=== PATIENT | female | born 1950 | race Caucasian/White ===

== ENCOUNTER 2016-03-09 19:06 | Emergency (ER) | payer OTHER ==
--- NOTE | 2016-03-09 19:53 | ER Document Report ---
ED Medical Screen (RME) - General Chief Complaint: Skin Problem Stated Complaint: SKIN ISSUE Mode of Arrival: Ambulatory Information source: Patient Notes: 65 y/o F presents to ED c/o bruise-type lesion to left forearm. States first noted lesion yesterday evening. Denies obvious injury, pain, swelling. I have greeted and performed a rapid initial assessment of this patient. A comprehensive ED assessment and evaluation of the patient, analysis of test results and completion of the medical decision making process will be conducted by additional ED providers. TRAVEL OUTSIDE OF THE [place] IN LAST 30 DAYS: No - Related Data Allergies/Adverse Reactions: rosuvastatin [From Crestor] Adverse Reaction (Verified 03/09/16 19:51) Past Medical History Endocrine Medical History: Reports: Hx Diabetes Mellitus Type 2 Renal/ Medical History: Denies: Hx Peritoneal Dialysis GI Medical History: Reports: Hx Gastroesophageal Reflux Disease, Hx Hepatitis - C Infectious Medical History: Reports: Hx Hepatitis - C - Immunizations Hx Diphtheria, Pertussis, Tetanus Vaccination: Yes Physical Exam - General General appearance: Appears well, Alert In distress: None
--- NOTE | 2016-03-09 21:54 | ER Document Report ---
ED Skin Rash/Insect Bite/Abscs - General Chief Complaint: Skin Problem Stated Complaint: SKIN ISSUE Mode of Arrival: Ambulatory Notes: Patient is a 65-year-old female who comes in complaining of a lesion on her left forearm. Patient states that it started last night and she doesn't remember hitting it on anything. Patient is concerned that she might have a blood clot. Patient points to an area of dark ecchymosis on her proximal left forearm. Denies pain, itching, blood thinners, or any other complaints. No other areas that look like this. No recent instrumentation. No fever. TRAVEL OUTSIDE OF THE [place] IN LAST 30 DAYS: No - HPI Patient complains to provider of: Skin rash/lesion Onset: Other Onset/Duration: Gradual Quality of pain: No pain Skin Character: Other Skin Temperature: Warm Quality of rash: No: Itchy, Painful, Burning Identify cause: No Exacerbated by: Denies Relieved by: Denies - Related Data Allergies/Adverse Reactions: rosuvastatin [From Crestor] Adverse Reaction (Verified 03/09/16 19:51) Past Medical History - General Information source: Patient - Social History Smoking Status: Unknown if Ever Smoked Family History: Reviewed & Not Pertinent Patient has suicidal ideation: No Patient has homicidal ideation: No - Medical History Medical History: Negative Endocrine Medical History: Reports: Hx Diabetes Mellitus Type 2 Renal/ Medical History: Denies: Hx Peritoneal Dialysis GI Medical History: Reports: Hx Gastroesophageal Reflux Disease, Hx Hepatitis - C Infectious Medical History: Reports: Hx Hepatitis - C - Immunizations Hx Diphtheria, Pertussis, Tetanus Vaccination: Yes Review of Systems - Review of Systems Constitutional: No symptoms reported EENT: No symptoms reported Cardiovascular: No symptoms reported Respiratory: No symptoms reported Gastrointestinal: No symptoms reported Genitourinary: No symptoms reported Female Genitourinary: No symptoms reported Musculoskeletal: No symptoms reported Skin: See HPI Hematologic/Lymphatic: No symptoms reported Neurological/Psychological: No symptoms reported Physical Exam - Vital signs Vitals: Temp Pulse Resp BP Pulse Ox 97.9 F 80 16 137/77 H 93 03/09/16 19:29 03/09/16 19:29 03/09/16 19:29 03/09/16 19:29 03/09/16 19:29 Interpretation: Normal - General General appearance: Appears well, Alert - HEENT Head: Normocephalic, Atraumatic Eyes: Normal Pupils: PERRL - Respiratory Respiratory status: No respiratory distress Chest status: Nontender Breath sounds: Normal Chest palpation: Normal - Cardiovascular Rhythm: Regular Heart sounds: Normal auscultation Murmur: No - Abdominal Inspection: Normal Distension: No distension Bowel sounds: Normal Tenderness: Nontender Organomegaly: No organomegaly - Back Back: Normal, Nontender - Extremities General upper extremity: Nontender, Normal color, Normal ROM, Normal temperature General lower extremity: Normal inspection, Nontender, Normal color, Normal ROM , Normal temperature, Normal weight bearing. No: Mónica's sign Forearm: Ecchymosis - Area of dark ecchymosis to left proximal forearm, approximately 0.5 cm wide by 3 cm long - Neurological Neuro grossly intact: Yes Cognition: Normal Orientation: AAOx4 Reena Coma Scale Eye Opening: Spontaneous [place] Coma Scale Verbal: Oriented [place] Coma Scale Motor: Obeys Commands Reena Coma Scale Total: 15 Speech: Normal Motor strength normal: LUE, RUE, LLE, RLE Sensory: Normal - Psychological Associated symptoms: Normal affect, Normal mood - Skin Skin Temperature: Warm Skin Moisture: Dry Skin Color: Normal Course - Re-evaluation Re-evalutation: 03/09/16 22:14 Patient is not anemic. Platelets within normal limits. No other symptoms. Symptoms are consistent with vasculitis, more likely patient had her arm on something without realizing. Patient will be discharged home and is to follow- up with her doctor. Stable for discharge. Grateful for care. - Vital Signs Vital signs: Temp Pulse Resp BP Pulse Ox 97.6 F 71 18 127/76 H 92 03/09/16 21:59 03/09/16 21:59 03/09/16 21:59 03/09/16 21:59 03/09/16 21:59 - Laboratory Result Diagrams: 03/09/16 21:40 03/09/16 21:40 Laboratory results interpreted by me: 03/09/16 21:40 WBC 11.1 H Hgb 15.6 H Hct 48.5 H Discharge - Discharge Clinical Impression: Ecchymosis of forearm Condition: Stable Disposition: HOME, SELF-CARE Instructions: Contusion ([facility]) Additional Instructions: Please call for results. Please follow-up with your doctor regarding your symptoms.
[2016-03-09 21:57] LABS: ABSOLUTE BASOPHILS # (AUTO) 0.1 10^3/uL (0.0-0.2); ABSOLUTE EOSINOPHILS # (AUTO) 0.3 10^3/uL (0.0-0.6); ABSOLUTE LYMPHOCYTES (AUTO) 3.5 10^3/uL (0.5-4.7); ABSOLUTE MONOCYTES (AUTO) 1.4 10^3/uL (0.1-1.4); ABSOLUTE NEUT (AUTO) 5.6 10^3/uL (1.7-8.2); BASOPHILS % (AUTO) 1.2 % (0-2); EOSINOPHILS % (AUTO) 2.7 % (0-6); HEMATOCRIT 48.5 % (36.0-47.0); HEMOGLOBIN 15.6 g/dL (12.0-15.5); HGB HCT DIFFERENCE -1.7; MEAN CORPUSCULAR HEMOGLOBIN 29.7 pg (27.0-33.4); MEAN CORPUSCULAR HGB CONC 32.2 g/dL (32.0-36.0); MEAN CORPUSCULAR VOLUME 92 fl (80-97); RED BLOOD COUNT 5.27 10^6/uL (3.72-5.28); RED CELL DISTRIBUTION WIDTH 13.7 % (11.5-14.0); SEGMENTED NEUTROPHILS % (AUTO) 51.1 % (42-78); WHITE BLOOD COUNT 11.1 10^3/uL (4.0-10.5)
[2016-03-09 22:10] VITALS: BP 127/76
[2016-03-09 22:16] LABS: ALANINE AMINOTRANSFERASE 33 U/L (9-52); ALBUMIN 4.8 g/dL (3.5-5.0); ALKALINE PHOSPHATASE 77 U/L (38-126); ANION GAP 16 (5-19); ASPARTATE AMINO TRANSFERASE 26 U/L (14-36); BILIRUBIN,TOTAL 0.5 mg/dL (0.2-1.3); BLOOD UREA NITROGEN 26 mg/dL (7-20); CALCIUM 10.5 mg/dL (8.4-10.2); CARBON DIOXIDE 31 mmol/L (22-30); CHLORIDE 97 mmol/L (98-107); CREATININE RESULT 0.86 mg/dL (0.52-1.25); GLUCOSE 100 mg/dL (75-110); POTASSIUM 3.5 mmol/L (3.6-5.0); SODIUM 143.5 mmol/L (137-145); TOTAL PROTEIN 8.3 g/dL (6.3-8.2)
== END 2016-03-09 22:00 | disposition home or self-care (01) ==
LOC: ER 19:06
DX: R58 Hemorrhage, not elsewhere classified (principal); E11.9 Type 2 diabetes mellitus without complications
CPT/HCPCS: 36415; 80053; 85025; 99283

== ENCOUNTER → 2016-05-20 | Outpatient (CLI) | payer OTHER | LOC: OD 15:11 | DX: B19.20 Unspecified viral hepatitis C without hepatic coma (principal) | CPT/HCPCS: 36415; 83036; 87522 ==

== ENCOUNTER 2016-09-04 12:44 | Emergency (ER) | payer OTHER ==
--- NOTE | 2016-09-04 13:05 | ER Document Report ---
ED Medical Screen (RME) - General Chief Complaint: Lower Abdominal Pain Stated Complaint: HIP PAIN Time Seen by Provider: 09/04/16 13:02 Notes: Patient states for several months she has had right hip and low back pain. It is progressively getting worse. It does radiate into her right pelvis and down her right thigh. She also states she has had some nausea and some diarrhea. No problems with urination. She states she does have a history of hepatitis C. No falls or trauma. TRAVEL OUTSIDE OF THE [place] IN LAST 30 DAYS: No - Related Data Allergies/Adverse Reactions: rosuvastatin [From Crestor] Adverse Reaction (Verified 09/04/16 12:57) Past Medical History - Past Medical History Cardiac Medical History: Reports: Hx Hypertension Endocrine Medical History: Reports: Hx Diabetes Mellitus Type 2 Renal/ Medical History: Denies: Hx Peritoneal Dialysis GI Medical History: Reports: Hx Gastroesophageal Reflux Disease, Hx Hepatitis - C Psychiatric Medical History: Reports: Hx Depression Infectious Medical History: Reports: Hx Hepatitis - C Past Surgical History: Reports: Hx Section - x1, Hx Gynecologic Surgery - Lump removal from L breast, Hx Hysterectomy, Hx Tonsillectomy - Immunizations Hx Diphtheria, Pertussis, Tetanus Vaccination: Yes Physical Exam - Vital signs Vitals: Temp Pulse Resp BP Pulse Ox 98 F 70 18 176/91 H 94 09/04/16 12:55 09/04/16 12:55 09/04/16 12:55 09/04/16 12:55 09/04/16 12:55 Course - Vital Signs Vital signs: Temp Pulse Resp BP Pulse Ox 98 F 70 18 176/91 H 94 09/04/16 12:55 09/04/16 12:55 09/04/16 12:55 09/04/16 12:55 09/04/16 12:55
[2016-09-04 13:29] LABS: APPEARANCE,URINE SLIGHTLY-CLOUDY; BILIRUBIN,URINE NEGATIVE (NEGATIVE); GLUCOSE, URINE NEGATIVE (NEGATIVE); KETONES,URINE NEGATIVE (NEGATIVE); LEUKOCYTE ESTERASE,URINE NEGATIVE (NEGATIVE); NITRITE,URINE NEGATIVE (NEGATIVE); PROTEIN,URINE 30 mg/dL (NEGATIVE); URINE SPECIFIC GRAVITY 1.014
[2016-09-04 13:35] LABS: ABSOLUTE BASOPHILS # (AUTO) 0.1 10^3/uL (0.0-0.2); ABSOLUTE EOSINOPHILS # (AUTO) 0.1 10^3/uL (0.0-0.6); ABSOLUTE LYMPHOCYTES (AUTO) 2.7 10^3/uL (0.5-4.7); ABSOLUTE MONOCYTES (AUTO) 1.2 10^3/uL (0.1-1.4); ABSOLUTE NEUT (AUTO) 6.7 10^3/uL (1.7-8.2); BASOPHILS % (AUTO) 1.3 % (0-2); EOSINOPHILS % (AUTO) 1.2 % (0-6); HEMATOCRIT 46.3 % (36.0-47.0); HEMOGLOBIN 15.8 g/dL (12.0-15.5); HGB HCT DIFFERENCE 1.1; LYMPHOCYTES % (AUTO) 24.6 % (13-45); MEAN CORPUSCULAR HEMOGLOBIN 31.7 pg (27.0-33.4); MEAN CORPUSCULAR HGB CONC 34.2 g/dL (32.0-36.0); MEAN CORPUSCULAR VOLUME 93 fl (80-97); RED BLOOD COUNT 4.99 10^6/uL (3.72-5.28); RED CELL DISTRIBUTION WIDTH 13.2 % (11.5-14.0); SEGMENTED NEUTROPHILS % (AUTO) 61.9 % (42-78); WHITE BLOOD COUNT 10.8 10^3/uL (4.0-10.5)
[2016-09-04 13:44] LABS: ALANINE AMINOTRANSFERASE 32 U/L (9-52); ALBUMIN 4.4 g/dL (3.5-5.0); ALKALINE PHOSPHATASE 76 U/L (38-126); ANION GAP 12 (5-19); ASPARTATE AMINO TRANSFERASE 21 U/L (14-36); BILIRUBIN,DIRECT 0.3 mg/dL (0.0-0.4); BILIRUBIN,TOTAL 0.6 mg/dL (0.2-1.3); BLOOD UREA NITROGEN 9 mg/dL (7-20); CALCIUM 9.7 mg/dL (8.4-10.2); CARBON DIOXIDE 27 mmol/L (22-30); CHLORIDE 104 mmol/L (98-107); CREATININE RESULT 0.62 mg/dL (0.52-1.25); GLUCOSE 83 mg/dL (75-110); POTASSIUM 4.2 mmol/L (3.6-5.0); SODIUM 143.4 mmol/L (137-145); TOTAL PROTEIN 7.3 g/dL (6.3-8.2)
--- NOTE | 2016-09-04 13:51 | ER Document Report ---
ED General - General Chief Complaint: Lower Abdominal Pain Stated Complaint: HIP PAIN Time Seen by Provider: 09/04/16 13:02 Mode of Arrival: Ambulatory Information source: Patient Notes: 66-year-old female presents with complaints of right lower quadrant pain intermittently over the past few years. Patient states she feels like there is a pressure sensation that is just worsened. Patient denies having been seen for this, denies any fevers or chills nausea vomiting or diarrhea. Patient does note that she has had a total hysterectomy but was told she still has ovaries coincidently TRAVEL OUTSIDE OF THE [place] IN LAST 30 DAYS: No - HPI Onset: Other Onset/Duration: Intermittent Quality of pain: Achy Severity: Mild Pain Level: 1 Associated symptoms: Other Exacerbated by: Denies Relieved by: Denies Similar symptoms previously: Yes Recently seen / treated by doctor: No - Related Data Allergies/Adverse Reactions: rosuvastatin [From Crestor] Adverse Reaction (Verified 09/04/16 12:57) Past Medical History - Social History Smoking Status: Never Smoker Cigarette use (# per day): No Chew tobacco use (# tins/day): No Smoking Education Provided: No Family History: Reviewed & Not Pertinent Patient has suicidal ideation: No Patient has homicidal ideation: No - Past Medical History Cardiac Medical History: Reports: Hx Hypertension Endocrine Medical History: Reports: Hx Diabetes Mellitus Type 2 Renal/ Medical History: Denies: Hx Peritoneal Dialysis GI Medical History: Reports: Hx Gastroesophageal Reflux Disease, Hx Hepatitis - C Psychiatric Medical History: Reports: Hx Depression Infectious Medical History: Reports: Hx Hepatitis - C Past Surgical History: Reports: Hx Section - x1, Hx Gynecologic Surgery - Lump removal from L breast, Hx Hysterectomy, Hx Tonsillectomy - Immunizations Hx Diphtheria, Pertussis, Tetanus Vaccination: Yes Review of Systems - Review of Systems Notes: REVIEW OF SYSTEMS: CONSTITUTIONAL : Denies fever, chills, or sweats. Denies recent illness. EENT: Denies eye, ear, throat, or mouth pain or symptoms. Denies nasal or sinus congestion or discharge. Denies throat, tongue, or mouth swelling or difficulty swallowing. CARDIOVASCULAR: Denies chest pain. Denies palpitations or racing or irregular heart beat. Denies ankle edema. RESPIRATORY: Denies cough, cold, or chest congestion. Denies shortness of breath, difficulty breathing, or wheezing. GASTROINTESTINAL: Tenderness in the right groin GENITOURINARY: Denies difficulty urinating, painful urination, burning, frequency, blood in urine, or discharge. FEMALE GENITOURINARY: Denies vaginal bleeding, heavy or abnormal periods, irregular periods. Denies vaginal discharge or odor. MUSCULOSKELETAL: Denies back or neck pain or stiffness. Denies joint pain or swelling. SKIN: Denies rash, lesions or sores. HEMATOLOGIC : Denies easy bruising or bleeding. LYMPHATIC: Denies swollen, enlarged glands. NEUROLOGICAL: Denies confusion or altered mental status. Denies passing out or loss of consciousness. Denies dizziness or lightheadedness. Denies headache. Denies weakness or paralysis or loss of use of either side. Denies problems with gait or speech. Denies sensory loss, numbness, or tingling. Denies seizures. PSYCHIATRIC: Denies anxiety or stress. Denies depression, suicidal ideation, or homicidal ideation. ALL OTHER SYSTEMS REVIEWED AND NEGATIVE. PHYSICAL EXAMINATION: GENERAL: Well-appearing, well-nourished and in no acute distress. HEAD: Atraumatic, normocephalic. EYES: Pupils equal round and reactive to light, extraocular movements intact, conjunctiva are normal. ENT: Nares patent, oropharynx clear without exudates. Moist mucous membranes. NECK: Normal range of motion, supple without lymphadenopathy LUNGS: Breath sounds clear to auscultation bilaterally and equal. No wheezes rales or rhonchi. HEART: Regular rate and rhythm without murmurs ABDOMEN: Soft, nontender, nondistended abdomen. No guarding, no rebound. No masses appreciated. Pressure sensation on palpation the right lower quadrant just above the ASIS Female : deferred Musculoskeletal: Normal range of motion, no pitting or edema. No cyanosis. NEUROLOGICAL: Cranial nerves grossly intact. Normal speech, normal gait. Normal sensory, motor exams PSYCH: Normal mood, normal affect. SKIN: Warm, Dry, normal turgor, no rashes or lesions noted. Dictation was performed using [employer] voice recognition software Physical Exam - Vital signs Vitals: Temp Pulse Resp BP Pulse Ox 98 F 70 18 176/91 H 94 09/04/16 12:55 09/04/16 12:55 09/04/16 12:55 09/04/16 12:55 09/04/16 12:55 Course - Re-evaluation Re-evalutation: 09/04/16 13:50 Ultrasound is pending at this time to rule out any ovarian mass 09/04/16 15:34 Ultrasound was consistent with a left ovary, right ovary is missing, there is no tumor noted, patient will be given GI follow-up lab work noted no significant abnormality patient otherwise looks well and will be discharged with very close return precautions Patient now believes it is a muscle strain, I will treated with Valium and anti- inflammatories After performing a Medical Screening Examination, I estimate there is LOW risk for ACUTE APPENDICITIS, BOWEL OBSTRUCTION, ACUTE CHOLECYSTITIS, PERFORATED DIVERTICULITIS, INCARCERATED HERNIA, PANCREATITIS, PELVIC INFLAMMATORY DISEASE, PERFORATED ULCER, ECTOPIC , or TUBO-OVARIAN ABSCESS, thus I consider the discharge disposition reasonable. Also, there is no evidence or peritonitis , sepsis, or toxicity. I have reevaluated this patient multiple times and no significant life threatening changes are noted. The patient and I have discussed the diagnosis and risks, and we agree with discharging home with close follow-up with the understanding that symptoms and presentations can change. We also discussed returning to the Emergency Department immediately if new or worsening symptoms occur. We have discussed the symptoms which are most concerning (e.g., bloody stool, fever, changing or worsening pain, vomiting) that necessitate immediate return. 09/04/16 15:36 - Vital Signs Vital signs: Temp Pulse Resp BP Pulse Ox 98 F 70 18 176/91 H 94 09/04/16 12:55 09/04/16 12:55 09/04/16 12:55 09/04/16 12:55 09/04/16 12:55 - Laboratory Result Diagrams: 09/04/16 13:14 09/04/16 13:14 Laboratory results interpreted by me: 09/04/16 09/04/16 13:14 13:14 WBC 10.8 H Hgb 15.8 H Urine Protein 30 H Urine Urobilinogen 2.0 H - Diagnostic Test Radiology reviewed: Image reviewed, Reports reviewed - report given to patient Discharge - Discharge Clinical Impression: Right lower quadrant abdominal pain, Muscle strain Condition: Stable Disposition: HOME, SELF-CARE Instructions: Abdominal Pain ([facility]) Additional Instructions: Follow up with your physician tomorrow for further care or return to the ED IMMEDIATELY if symptoms worsen or new concerns occur. If you cannot afford to follow up with your primary care physician a list of low cost clinics have been provided at the end of your discharge papers as well. Prescriptions: Diazepam [Valium 5 mg Tablet] 5 mg PO QIDP PRN #15 tablet PRN Reason: Naproxen 500 mg PO BID #20 tablet Referrals: JARRED DONALDSON MD [ACTIVE STAFF] - Follow up tomorrow
--- NOTE | 2016-09-04 13:58 | RADIOLOGY REPORT (SQ) ---
EXAM DESCRIPTION: HIP RIGHT AP/LATERAL COMPLETED DATE/TIME: 09/04/2016 1:43 pm REASON FOR STUDY: pain COMPARISON: None. NUMBER OF VIEWS: Two views. TECHNIQUE: AP pelvis and additional frog-leg view of the right hip. LIMITATIONS: None. FINDINGS: MINERALIZATION: Normal. RIGHT HIP: No fracture or dislocation. No worrisome bone lesions. LEFT HIP: No fracture or dislocation. No worrisome bone lesions. PUBIS AND ISCHIUM: No fracture. PELVIS: No fracture. SACRUM: No fracture or dislocation. No worrisome bone lesions. LOWER LUMBAR SPINE: No fracture or dislocation. No worrisome bone lesions. No significant disc disea se. SOFT TISSUES: No findings. OTHER: No other significant finding. IMPRESSION: NO RADIOGRAPHIC EVIDENCE OF ACUTE INJURY. No significant degenerative changes are iden tified. Other findings as noted above TECHNICAL DOCUMENTATION: JOB ID: [id number] [employer]- All Rights Reserved
--- NOTE | 2016-09-04 14:00 | RADIOLOGY REPORT (SQ) ---
EXAM DESCRIPTION: L SPINE 2 VIEWS COMPLETED DATE/TIME: 09/04/2016 1:43 pm REASON FOR STUDY: pain COMPARISON: None. NUMBER OF VIEWS: Three views. TECHNIQUE: AP, lateral and sacral radiographic images acquired of the lumbar spine. LIMITATIONS: None. FINDINGS: MINERALIZATION: Normal. SEGMENTATION: Normal. No transitional anatomy. ALIGNMENT: Normal. VERTEBRAE: Maintained height. No fracture or worrisome bone lesion. DISCS: No significant disc space reduction is seen. There is mild anterior osteophytic lipping at mu ltiple levels. POSTERIOR ELEMENTS: Degenerative changes are identified in the facet articulations at the L4 and L5 l evels. HARDWARE: None in the spine. PARASPINAL SOFT TISSUES: Normal. PELVIS: Intact as visualized. No fractures or worrisome bone lesions. SI joints intact. OTHER: No other significant finding. IMPRESSION: No significant vertebral compression or disc space reduction. Degenerative changes as n oted above. TECHNICAL DOCUMENTATION: JOB ID: [id number] [employer]- All Rights Reserved
--- NOTE | 2016-09-04 15:24 | RADIOLOGY REPORT (SQ) ---
EXAM DESCRIPTION: U/S NON OB PEL TV W/DOPPLER COMPLETED DATE/TIME: 09/04/2016 3:07 pm REASON FOR STUDY: RLQ pain COMPARISON: None. TECHNIQUE: Dynamic and static grayscale images acquired of the pelvis via transvaginal approach and recorded on PACS. Additional selected color Doppler and spectral images recorded. LIMITATIONS: None. FINDINGS: UTERUS: Status post hysterectomy. RIGHT OVARY: Right ovary was not visualized. LEFT OVARY: Questionable left ovary was identified. LEFT OVARY DOPPLER: Normal arterial vascular flow without evidence for torsion. FREE FLUID: None noted. OTHER: No other significant finding. MEASUREMENTS: LEFT OVARY: 3.5 x 2.2 x 2.5 cm IMPRESSION: No significant pelvic abnormalities were identified. Findings as noted above TECHNICAL DOCUMENTATION: JOB ID: [id number] [employer]- All Rights Reserved
[2016-09-04 15:53] VITALS: BP 175/79
== END 2016-09-04 15:50 | disposition home or self-care (01) ==
LOC: ER 12:44
DX: S39.011A Strain of muscle, fascia and tendon of abdomen, initial encounter (principal); X58.XXXA Exposure to other specified factors, initial encounter; R10.31 Right lower quadrant pain; E11.9 Type 2 diabetes mellitus without complications; I10 Essential (primary) hypertension; Z90.710 Acquired absence of both cervix and uterus
CPT/HCPCS: 36415; 72100; 76830; 80053; 81001; 85025; 93976; 99284

== ENCOUNTER 2016-10-21 16:06 | Inpatient (IN) | payer OTHER ==
--- NOTE | 2016-10-21 16:36 | ER Document Report ---
ED Medical Screen (RME) - General Chief Complaint: Chest Pain Stated Complaint: CHEST PAIN Time Seen by Provider: 10/21/16 16:35 Notes: Patient complains of intermittent left-sided chest pain. Patient states that her friends she states she does have some associated numbness and tingling in both arms. Encourage her to come in today because she has been continuing to have the pain. She denies any previous cardiac disease. She does not know of any recent stress tests or evaluations. Patient states she has had [employer] to her diet in the last 2 weeks and this is put her under a lot of stress. TRAVEL OUTSIDE OF THE [place] IN LAST 30 DAYS: No - Related Data Allergies/Adverse Reactions: rosuvastatin [From [employer]] Adverse Reaction (Verified 10/21/16 16:09) Past Medical History - Past Medical History Cardiac Medical History: Reports: Hx Hypertension Endocrine Medical History: Reports: Hx Diabetes Mellitus Type 2 Renal/ Medical History: Denies: Hx Peritoneal Dialysis GI Medical History: Reports: Hx Gastroesophageal Reflux Disease, Hx Hepatitis - C Psychiatric Medical History: Reports: Hx Depression Infectious Medical History: Reports: Hx Hepatitis - C Past Surgical History: Reports: Hx Section - x1, Hx Gynecologic Surgery - Lump removal from L breast, Hx Hysterectomy, Hx Tonsillectomy - Immunizations Hx Diphtheria, Pertussis, Tetanus Vaccination: Yes Physical Exam - Vital signs Vitals: Temp Pulse Resp BP Pulse Ox 98.7 F 70 16 148/71 H 92 10/21/16 16:19 10/21/16 16:19 10/21/16 16:19 10/21/16 16:19 10/21/16 16:19 Course - Vital Signs Vital signs: Temp Pulse Resp BP Pulse Ox 98.7 F 70 16 148/71 H 92 10/21/16 16:19 10/21/16 16:19 10/21/16 16:19 10/21/16 16:19 10/21/16 16:19
[2016-10-21 16:54] LABS: ABSOLUTE EOSINOPHILS # (AUTO) 0.3 10^3/uL (0.0-0.6); ABSOLUTE LYMPHOCYTES (AUTO) 2.8 10^3/uL (0.5-4.7); ABSOLUTE NEUT (AUTO) 4.7 10^3/uL (1.7-8.2); BASOPHILS % (AUTO) 0.3 % (0-2); EOSINOPHILS % (AUTO) 3.2 % (0-6); HEMATOCRIT 43.8 % (36.0-47.0); HEMOGLOBIN 15.1 g/dL (12.0-15.5); HGB HCT DIFFERENCE 1.5; LYMPHOCYTES % (AUTO) 31.9 % (13-45); MEAN CORPUSCULAR HEMOGLOBIN 31.9 pg (27.0-33.4); MEAN CORPUSCULAR HGB CONC 34.5 g/dL (32.0-36.0); MEAN CORPUSCULAR VOLUME 92 fl (80-97); MONOCYTES % (AUTO) 10.9 % (3-13); RED BLOOD COUNT 4.74 10^6/uL (3.72-5.28); RED CELL DISTRIBUTION WIDTH 13.3 % (11.5-14.0); SEGMENTED NEUTROPHILS % (AUTO) 53.7 % (42-78); WHITE BLOOD COUNT 8.7 10^3/uL (4.0-10.5)
--- NOTE | 2016-10-21 17:08 | RADIOLOGY REPORT (SQ) ---
EXAM DESCRIPTION: CHEST SINGLE VIEW COMPLETED DATE/TIME: 10/21/2016 4:50 pm REASON FOR STUDY: cp COMPARISON: 03/06/2014 EXAM PARAMETERS: NUMBER OF VIEWS: One view. TECHNIQUE: Single frontal radiographic view of the chest acquired. RADIATION DOSE: NA LIMITATIONS: None. FINDINGS: LUNGS AND PLEURA: No opacities, masses or pneumothorax. No pleural effusion. There was sh adow projected over the left lower lung zone. MEDIASTINUM AND HILAR STRUCTURES: No masses. Contour normal. HEART AND VASCULAR STRUCTURES: Heart normal in size. Normal vasculature. BONES: No acute findings. HARDWARE: None in the chest. OTHER: No other significant finding. IMPRESSION: NO ACUTE RADIOGRAPHIC FINDING IN THE CHEST. TECHNICAL DOCUMENTATION: JOB ID: [id number]
[2016-10-21] MEDS ORDERED: ASPIRIN 325 MG TABLET PO ONE (17:11)
[2016-10-21 17:15] LABS: ALANINE AMINOTRANSFERASE 38 U/L (9-52); ALBUMIN 4.1 g/dL (3.5-5.0); ALKALINE PHOSPHATASE 79 U/L (38-126); ANION GAP 9 (5-19); ASPARTATE AMINO TRANSFERASE 23 U/L (14-36); BILIRUBIN,DIRECT 0.4 mg/dL (0.0-0.4); BILIRUBIN,TOTAL 0.5 mg/dL (0.2-1.3); BLOOD UREA NITROGEN 14 mg/dL (7-20); CARBON DIOXIDE 31 mmol/L (22-30); CHLORIDE 101 mmol/L (98-107); GLUCOSE 192 mg/dL (75-110); POTASSIUM 4.3 mmol/L (3.6-5.0); SODIUM 140.7 mmol/L (137-145)
--- NOTE | 2016-10-21 17:26 | ER Document Report ---
ED General - General Chief Complaint: Chest Pain Stated Complaint: CHEST PAIN Time Seen by Provider: 10/21/16 16:35 Mode of Arrival: Ambulatory Information source: Patient Notes: 66-year-old female history of hypertension hyperlipidemia diabetes presents with complaints of chest pain of intermittent 1-2 week duration. Patient notes the pain radiates between the shoulder blades and down the left arm. Patient denies any fevers or chills admits to generalized fatigue Patient denies any previous cardiac history TRAVEL OUTSIDE OF THE [place] IN LAST 30 DAYS: No - HPI Onset: Other Onset/Duration: Intermittent Quality of pain: Pressure Severity: Mild Pain Level: 1 Associated symptoms: Chest pain, Weakness Exacerbated by: Denies Relieved by: Denies Similar symptoms previously: No Recently seen / treated by doctor: No - Related Data Allergies/Adverse Reactions: rosuvastatin [From Crestor] Adverse Reaction (Verified 10/21/16 16:09) Past Medical History - Social History Smoking Status: Current Every Day Smoker Cigarette use (# per day): Yes Chew tobacco use (# tins/day): No Smoking Education Provided: No Frequency of alcohol use: Rare Drug Abuse: None Family History: Reviewed & Not Pertinent Patient has suicidal ideation: No - Past Medical History Cardiac Medical History: Reports: Hx Hypertension Endocrine Medical History: Reports: Hx Diabetes Mellitus Type 2 Renal/ Medical History: Denies: Hx Peritoneal Dialysis GI Medical History: Reports: Hx Gastroesophageal Reflux Disease, Hx Hepatitis - C Psychiatric Medical History: Reports: Hx Depression Infectious Medical History: Reports: Hx Hepatitis - C Past Surgical History: Reports: Hx Section - x1, Hx Gynecologic Surgery - Lump removal from L breast, Hx Hysterectomy, Hx Tonsillectomy - Immunizations Hx Diphtheria, Pertussis, Tetanus Vaccination: Yes Review of Systems - Review of Systems Notes: REVIEW OF SYSTEMS: CONSTITUTIONAL : Denies fever, chills, or sweats. Denies recent illness. EENT: Denies eye, ear, throat, or mouth pain or symptoms. Denies nasal or sinus congestion or discharge. Denies throat, tongue, or mouth swelling or difficulty swallowing. CARDIOVASCULAR: Admits to chest pain radiating to the back RESPIRATORY: Denies cough, cold, or chest congestion. Denies shortness of breath, difficulty breathing, or wheezing. GASTROINTESTINAL: Denies abdominal pain or distention. Denies nausea, vomiting , or diarrhea. Denies blood in vomitus, stools, or per rectum. Denies black, tarry stools. Denies constipation. GENITOURINARY: Denies difficulty urinating, painful urination, burning, frequency, blood in urine, or discharge. FEMALE GENITOURINARY: Denies vaginal bleeding, heavy or abnormal periods, irregular periods. Denies vaginal discharge or odor. MUSCULOSKELETAL: Denies back or neck pain or stiffness. Denies joint pain or swelling. SKIN: Denies rash, lesions or sores. HEMATOLOGIC : Denies easy bruising or bleeding. LYMPHATIC: Denies swollen, enlarged glands. NEUROLOGICAL: Denies confusion or altered mental status. Denies passing out or loss of consciousness. Denies dizziness or lightheadedness. Denies headache. Denies weakness or paralysis or loss of use of either side. Denies problems with gait or speech. Denies sensory loss, numbness, or tingling. Denies seizures. PSYCHIATRIC: Denies anxiety or stress. Denies depression, suicidal ideation, or homicidal ideation. ALL OTHER SYSTEMS REVIEWED AND NEGATIVE. PHYSICAL EXAMINATION: GENERAL: Well-appearing, well-nourished and in no acute distress. HEAD: Atraumatic, normocephalic. EYES: Pupils equal round and reactive to light, extraocular movements intact, conjunctiva are normal. ENT: Nares patent, oropharynx clear without exudates. Moist mucous membranes. NECK: Normal range of motion, supple without lymphadenopathy LUNGS: Breath sounds clear to auscultation bilaterally and equal. No wheezes rales or rhonchi. HEART: Regular rate and rhythm without murmurs ABDOMEN: Soft, nontender, nondistended abdomen. No guarding, no rebound. No masses appreciated. Female : deferred Musculoskeletal: Normal range of motion, no pitting or edema. No cyanosis. NEUROLOGICAL: Cranial nerves grossly intact. Normal speech, normal gait. Normal sensory, motor exams PSYCH: Normal mood, normal affect. SKIN: Warm, Dry, normal turgor, no rashes or lesions noted. Dictation was performed using [employer] voice recognition software Physical Exam - Vital signs Vitals: Temp Pulse Resp BP Pulse Ox 98.7 F 70 16 148/71 H 92 10/21/16 16:19 10/21/16 16:19 10/21/16 16:19 10/21/16 16:19 10/21/16 16:19 Course - Re-evaluation Re-evalutation: 10/21/16 17:26 Physical examination noted no significant abnormality labwork is pending at this time expect admission given risk factors 10/21/16 17:50 Cardiac enzymes are negative patient will be admitted for observation purposes - Vital Signs Vital signs: Temp Pulse Resp BP Pulse Ox 98.7 F 70 20 178/86 H 95 10/21/16 16:19 10/21/16 16:19 10/21/16 17:23 10/21/16 17:23 10/21/16 17:23 - Laboratory Result Diagrams: 10/21/16 16:45 10/21/16 16:45 Laboratory results interpreted by me: 10/21/16 16:45 Carbon Dioxide 31 H Glucose 192 H - Diagnostic Test Radiology reviewed: Image reviewed, Reports reviewed - EKG Interpretation by [facility] EKG shows normal: Sinus rhythm, [place], QRS Complexes Discharge - Discharge Clinical Impression: Chest pain Qualifiers: Chest pain type: unspecified Qualified Code(s): R07.9 - Chest pain, unspecified HTN (hypertension) Qualifiers: Hypertension type: essential hypertension Qualified Code(s): I10 - Essential ( primary) hypertension Diabetes Qualifiers: Diabetes mellitus type: other specified (including DK) Diabetes mellitus complication status: with unspecified complications Diabetes mellitus director of nursing insulin use: with director of nursing use Qualified Code(s): E13.8 - Other specified diabetes mellitus with unspecified complications; Z79.4 - skilled nursing (current) use of insulin Condition: Stable Disposition: ADMITTED OBSERVATION Admitting Provider: Hospitalist Unit Admitted: Telemetry
[2016-10-21] MEDS ORDERED: LOSARTAN POTASSIUM 50 MG TABLET PO ONE (17:53)
[2016-10-21] MEDS ORDERED: HYDROCHLOROTHIAZIDE 25 MG TABLET PO ONE (17:53)
[2016-10-21] MEDS ORDERED: ONDANSETRON 4 MG TAB.RAPDIS PO PRN (18:13)
[2016-10-21] MEDS ORDERED: OXYCODONE-ACETAMINOPHEN 5-325 MG TABLET PO PRN (18:13)
[2016-10-21] MEDS ORDERED: HYDRALAZINE HCL 50 MG TABLET PO PRN (18:26)
[2016-10-21] MEDS ORDERED: DEXTROSE 40% GEL 15 GM TUBE PO PRN ×2 (18:53)
[2016-10-21] MEDS ORDERED: INSULIN LISPRO 100 UNIT/ML 3 ML VIAL SUBCUT PRN (18:53)
[2016-10-21] MEDS ORDERED: DEXTROSE 50%-WATER 25 GM/50 ML DISP.SYRIN IV PRN ×2 (18:53)
[2016-10-21] MEDS ORDERED: GLUCAGON,HUMAN RECOMB 1 MG INJ IM PRN (18:53)
--- NOTE | 2016-10-21 18:53 | PDOC H&P ---
History of Present Illness Admission Date/PCP: 10/21/16 18:16 [facility] Patient complains of: Chest Pain History of Present Illness: HELDER SOLIZ is a 66 year old female presents with complaint of chest pain that has been occurring for 1-2 weeks. Pt states that pain has been occurring at rest. Pt states that pain is in the left pect. muscle that she describes pain as pressure. Pt states that she is having no pain. Pt states that chest pain radiates to left arm and shoulder blades. +Fatigue. Pt states that she is not sleeping well. Right hand numbness for 2 weeks. Pt states that she has been having neck pain. Past Medical History Cardiac Medical History: Reports: Hypertension Endocrine Medical History: Reports: Diabetes Mellitus Type 2 GI Medical History: Reports: Gastroesophageal Reflux Disease, Hepatitis - C Psychiatric Medical History: Reports: Depression Past Surgical History Past Surgical History: Reports: Section - x1, Hysterectomy, Tonsillectomy Social History Smoking Status: Current Every Day Smoker Cigarettes Packs Per Day: 1 Frequency of Alcohol Use: Occasional Drugs: None Family History Family History: Reviewed & Not Pertinent Parental Family History Reviewed: Yes Children Family History Reviewed: Yes Sibling(s) Family History Reviewed.: Yes Medication/Allergy Home Medications: Diazepam [Valium 5 mg Tablet] 5 mg PO Q6HP PRN 10/21/16 Losartan/Hydrochlorothiazide [Hyzaar 100-25 Tablet] 1 tab PO DAILY 10/21/16 Naproxen 500 mg PO Q12 10/21/16 Omeprazole 20 mg PO DAILY 10/21/16 Allergies/Adverse Reactions: rosuvastatin [From Crestor] Adverse Reaction (Verified 10/21/16 16:09) Review of Systems Constitutional: ABSENT: chills, fever(s), headache(s), weight gain, weight loss Eyes: ABSENT: visual disturbances Ears: ABSENT: hearing changes Cardiovascular: PRESENT: chest pain. ABSENT: dyspnea on exertion, edema, orthropnea, palpitations Respiratory: ABSENT: cough, hemoptysis Gastrointestinal: ABSENT: abdominal pain, constipation, diarrhea, hematemesis, hematochezia, nausea, vomiting Genitourinary: ABSENT: dysuria, hematuria Musculoskeletal: ABSENT: joint swelling Integumentary: ABSENT: rash, wounds Neurological: PRESENT: focal weakness - right upper ext weakness. ABSENT: abnormal gait, abnormal speech, confusion, dizziness, syncope Psychiatric: ABSENT: anxiety, depression, homidical ideation, suicidal ideation Hematologic/Lymphatic: ABSENT: easy bleeding, easy bruising Physical Exam Vital Signs: Temp Pulse Resp BP Pulse Ox 98.7 F 70 20 178/86 H 95 10/21/16 16:19 10/21/16 16:19 10/21/16 17:23 10/21/16 17:23 10/21/16 17:23 General appearance: PRESENT: no acute distress, well-developed, well-nourished Head exam: PRESENT: atraumatic, normocephalic Eye exam: PRESENT: conjunctiva pink, EOMI. ABSENT: scleral icterus Ear exam: PRESENT: normal external ear exam Mouth exam: PRESENT: moist, tongue midline Neck exam: ABSENT: carotid bruit, JVD, lymphadenopathy, thyromegaly Respiratory exam: PRESENT: clear to auscultation yovanny. ABSENT: rales, rhonchi, wheezes Cardiovascular exam: PRESENT: RRR. ABSENT: diastolic murmur, rubs, systolic murmur Pulses: PRESENT: normal dorsalis pedis pul Vascular exam: PRESENT: normal capillary refill GI/Abdominal exam: PRESENT: normal bowel sounds, soft. ABSENT: distended, guarding, mass, organolmegaly, rebound, tenderness Rectal exam: PRESENT: deferred Extremities exam: PRESENT: full ROM. ABSENT: calf tenderness, clubbing, pedal edema Musculoskeletal exam: PRESENT: full ROM Neurological exam: PRESENT: alert, awake, oriented to person, oriented to place , oriented to time, oriented to situation, CN II-XII grossly intact, other - right forearm 4/5, right hand lcpc strength 3/5. ABSENT: motor sensory deficit Psychiatric exam: PRESENT: appropriate affect, normal mood. ABSENT: homicidal ideation, suicidal ideation Skin exam: PRESENT: dry, intact, warm. ABSENT: cyanosis, rash Results Impressions: Chest X-Ray 10/21/16 16:35 IMPRESSION: NO ACUTE RADIOGRAPHIC FINDING IN THE CHEST. Assessment & Plan - Diagnosis (1) Chest pain Qualifiers: Chest pain type: unspecified Qualified Code(s): R07.9 - Chest pain, unspecified Is this a current diagnosis for this admission?: Yes Plan: Will check troponins. Will order for Stress test in a.m. Will continue current medications. (2) Neck pain Is this a current diagnosis for this admission?: Yes Plan: Will obtain MRI of cervical spine. (3) Cervical radiculopathy due to degenerative joint disease of spine Is this a current diagnosis for this admission?: Yes Plan: Pt states that she has history of cervical spinal disease. Will order MRI of cervical spine. (4) Right arm weakness Is this a current diagnosis for this admission?: Yes Plan: Pt states that she has had weakness in right arm for 1-2 weeks. MRI orderd (5) Obesity (BMI 30.0-34.9) Is this a current diagnosis for this admission?: Yes Plan: Encourage dietary changes. (6) HLD (hyperlipidemia) Qualifiers: Hyperlipidemia type: unspecified Qualified Code(s): E78.5 - Hyperlipidemia , unspecified Is this a current diagnosis for this admission?: Yes Plan: Lipid profile pending. Pt states that she could not tolerate statin. (7) BLESSING (obstructive sleep apnea) Is this a current diagnosis for this admission?: Yes Plan: Pt not complaint with CPAP (8) GERD (gastroesophageal reflux disease) Is this a current diagnosis for this admission?: Yes Plan: PPI (9) Hep C w/o coma, chronic Is this a current diagnosis for this admission?: Yes Plan: Supportive care. 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 PRN Hydralazine. (12) DVT prophylaxis Is this a current diagnosis for this admission?: Yes Plan: Lovenox - Time Time Spent: 30 to 50 Minutes Anticipated discharge: Home
[2016-10-21] MEDS ORDERED: AMLODIPINE BESYLATE 10 MG TABLET PO ONE (19:00)
[2016-10-21 19:13] LABS: THYROID STIMULATING HORMONE 1.2 uIU/mL (0.47-4.68)
--- NOTE | 2016-10-21 19:14 | EKG REPORT ---
SEVERITY:- ABNORMAL ECG - SINUS RHYTHM LEFT AXIS DEVIATION BORDERLINE R WAVE PROGRESSION, ANTERIOR LEADS NONSPECIFIC T ABNORMALITIES, LATERAL LEADS : Confirmed by: Kelvin Arzate MD 21-Oct-2016 19:13:46
[2016-10-21] MEDS ORDERED: ENOXAPARIN SODIUM INJ 40 MG/0.4 ML DISP.SYRIN SUBCUT ONE (19:30)
[2016-10-22 05:00] LABS: ABSOLUTE BASOPHILS # (AUTO) 0.1 10^3/uL (0.0-0.2); ABSOLUTE EOSINOPHILS # (AUTO) 0.4 10^3/uL (0.0-0.6); ABSOLUTE MONOCYTES (AUTO) 1.3 10^3/uL (0.1-1.4); ABSOLUTE NEUT (AUTO) 3.6 10^3/uL (1.7-8.2); BASOPHILS % (AUTO) 0.8 % (0-2); EOSINOPHILS % (AUTO) 4.8 % (0-6); HEMATOCRIT 42.9 % (36.0-47.0); HEMOGLOBIN 14.7 g/dL (12.0-15.5); HGB HCT DIFFERENCE 1.2; LYMPHOCYTES % (AUTO) 36.3 % (13-45); MEAN CORPUSCULAR HGB CONC 34.3 g/dL (32.0-36.0); MEAN CORPUSCULAR VOLUME 93 fl (80-97); MONOCYTES % (AUTO) 15.1 % (3-13); RED CELL DISTRIBUTION WIDTH 13.2 % (11.5-14.0); WHITE BLOOD COUNT 8.3 10^3/uL (4.0-10.5)
[2016-10-22 05:15] LABS: ANION GAP 8 (5-19); BLOOD UREA NITROGEN 15 mg/dL (7-20); CALCIUM 10.6 mg/dL (8.4-10.2); CARBON DIOXIDE 34 mmol/L (22-30); CHLORIDE 100 mmol/L (98-107); CHOLESTEROL 210.71 mg/dL (0-200); CREATINE KINASE 36 U/L (30-135); CREATININE RESULT 0.77 mg/dL (0.52-1.25); Direct HDL 40 mg/dL (>40); GLUCOSE 136 mg/dL (75-110); POTASSIUM 4.7 mmol/L (3.6-5.0); SODIUM 142.2 mmol/L (137-145); TRIGLYCERIDES 306 mg/dL (<150)
[2016-10-22 05:25] LABS: DIRECT LDL 126 mg/dL (<100)
[2016-10-22 05:39] LABS: VLDL CHOLESTEROL 61.2 mg/dL (10-31)
[2016-10-22] MEDS ORDERED: LANSOPRAZOLE 30 MG TAB.RAP.DR PO SCH (06:00)
--- NOTE | 2016-10-22 07:56 | EKG REPORT ---
SEVERITY:- OTHERWISE NORMAL ECG - SINUS RHYTHM LEFT AXIS DEVIATION : Confirmed by: Kelvin Arzate MD 22-Oct-2016 07:55:44
[2016-10-22] MEDS ORDERED: ENOXAPARIN SODIUM INJ 40 MG/0.4 ML DISP.SYRIN SUBCUT SCH (10:00)
[2016-10-22] MEDS ORDERED: AMLODIPINE BESYLATE 10 MG TABLET PO SCH (10:00)
[2016-10-22] MEDS ORDERED: HYDROCHLOROTHIAZIDE 25 MG TABLET PO SCH (10:00)
[2016-10-22] MEDS ORDERED: DOCUSATE SODIUM 100 MG CAPSULE PO SCH (10:00)
[2016-10-22] MEDS ORDERED: REGADENOSON INJ 0.4 MG/5 ML DISP.SYRIN IV ONE (11:22)
[2016-10-22] MEDS ORDERED: AMINOPHYLLINE INJ/PF 250 MG/10 ML SDV IV ONE (11:22)
[2016-10-22] MEDS ORDERED: DIAZEPAM 5 MG TABLET ONE (11:41)
[2016-10-22] MEDS ORDERED: DIAZEPAM 5 MG TABLET PO ONE (12:00)
[2016-10-22 12:24] VITALS: BP 140/75
--- NOTE | 2016-10-22 12:51 | DRAGON STRESS TEST REPORT ---
INTRAVENOUS LEXISCAN CARDIOLITE STRESS TEST USING SINGLE PHOTON EMMISION COMPUTERIZED TOMOGRAPHIC. DATE OF PROCEDURE: October 22, 2016 INDICATION : Chest pain CARDIAC RISK FACTORS: Diabetes, hypertension, dyslipidemia, tobacco abuse and family history of CAD RESTING EKG: Sinus rhythm without any baseline ST-T wave changes STRESS EKG: No significant changes noted with LexiScan bolus REASON FOR TERMINATION: Protocol. PROCEDURE REPORT: Baseline heart rate 75 beats per minute with blood pressure of 126/79. Patient had no significant complaints. Heart rate at 2 minutes post bolus 99 with a blood pressure of 135/76. 3 minutes post bolus heart rate 86 with blood pressure of 121/76. No significant EKG changes were noted. Patient had no significant complaints during the procedure or postprocedure. Patient injected with Aminophyllin 75 mg at 3 minutes or later after Lexiscan bolus. CONCLUSIONS: Normal EKG and hemodynamic response to IV LexiScan. NUCLEAR DATA: At rest the patient was given 12.78 millicuries of technetium 99 sestamibi injected intravenously. As per protocol rest gated SPECT images were obtained. Subsequently the patient was given intravenous LexiScan at a dose of 0.4 mg in 5 mL intravenously, followed by flush with normal saline. Subsequently the stress dose of 35.9 millicuries of technetium 99 sestamibi was injected intravenously. As per protocol stress gated images were obtained. NUCLEAR INTERPRETATION: Both raw and processed data were used for interpretation. Visual, qualitative, computer-generated quantitative data was used. There was good myocardial uptake of technetium compound. Motion artifact and soft tissue attenuations were noted. Increased visceral uptake was noted. No definitive areas of transient perfusion defect noted. No definitive areas of fixed perfusion defect or scars noted. Although RV free wall uptake was noted to be normal, RV may be dilated. Borderline decreased uptake noted in the basal inferior wall in the stress images but is felt to be most likely related to diaphragmatic attenuation. EKG gated imaging showed LV EF at 58 %, rest and stress gated EF similar visually. T. I D. ratio was 1.17. Lung heart ratio noted to be within normal limits 0.28. No significant extracardiac and abnormal radiotracer activities were noted. Although RV free wall uptake was noted to be normal, RV may be dilated. IMPRESSION: Also refer to comments under nuclear interpretation. Also test results needs to be interpreted in the context of pretest probability. 1. There is no definitive scintigraphic evidence of LexiScan induced myocardial ischemia. 2. There is no definitive scintigraphic evidence of myocardial infarction/scar. 3. EKG gated imaging shows left ventricular ejection fraction of approximately 58 %. 4. Although RV free wall uptake was noted to be normal, RV may be dilated. Clinical correlation requested as occasionally single vessel disease or balanced ischemia could be missed. In approximately 10% of the cases Lexiscan may not cause adequate vasodilatory stress. RECOMMENDATIONS: Aggressive risk factor modification, medical therapy. Clinical correlation with echocardiogram derived ejection fraction. Inability to exercise by itself can lead to increased cardiovascular event risks. Consider cardiology consultation and or follow-up if clinically indicated. I AM AVAILABLE FOR CARDIOLOGY CONSULTATION AND FOLLOWUP IF REQUESTED BY PMDiana Varghese M.D., YASMIN Chiseler Head chainstitch pants outseamer, Board certified in cardiovascular diseases, Nuclear cardiology, Echocardiography Cardiac CT and cardiac MRI Ph. [phone] [facility] CENTERDiana
--- NOTE | 2016-10-22 14:28 | RADIOLOGY REPORT (SQ) ---
EXAM DESCRIPTION: MRI CERVICAL SPINE WITHOUT COMPLETED DATE/TIME: 10/22/2016 12:37 pm REASON FOR STUDY: Right arm numbness and weakness COMPARISON: None. TECHNIQUE: Sagittal and Axial imaging includes T1, T2, STIR and gradient echo sequences. LIMITATIONS: Motion artifact on all pulse sequences FINDINGS: ALIGNMENT: Normal. VERTEBRAE: Intact. BONE MARROW: Normal. No marrow replacement or reactive changes. DISCS: Normal. No significant abnormal signal or loss of height. HARDWARE: None in the spine. CORD AND BASE OF BRAIN: Normal in size and signal intensity. SOFT TISSUES: No soft tissue masses. C1-C2: No significant spinal stenosis. C2-C3: No significant spinal stenosis or exit foraminal stenosis. C3-C4: No significant spinal stenosis or exit foraminal stenosis. C4-C5: No significant spinal stenosis or exit foraminal stenosis. C5-C6: No significant spinal stenosis or exit foraminal stenosis. C6-C7: No significant spinal stenosis or exit foraminal stenosis. C7-T1: No significant spinal stenosis or exit foraminal stenosis. UPPER THORACIC: Incompletely imaged. No significant spinal stenosis or exit foraminal stenosis. OTHER: There is mild bilateral facet arthropathy from C3-4 through C5-6. IMPRESSION: Limited study. No high-grade central or foraminal encroachment. Patient my tolerate CT better than MRI for future imaging TECHNICAL DOCUMENTATION: JOB ID: [id number]- All Rights Reserved
--- NOTE | 2016-10-22 15:33 | PDOC DISCHARGE SUMMARY ---
General - Admit/Disc Date/PCP Admission Date/Primary Care Provider: 10/21/16 18:13 [facility] Discharge Date: 10/22/16 - Discharge Diagnosis (1) Chest pain Is this a current diagnosis for this admission?: Yes Summary: Atypical Chest Pain Musculoskeletal Pain (2) Neck pain Is this a current diagnosis for this admission?: Yes Summary: Cervical Degenerative disease. Pt will follow with Neurosurgery in 2-3 weeks (3) Cervical radiculopathy due to degenerative joint disease of spine Is this a current diagnosis for this admission?: Yes Summary: supportive care. Pt will follow up with Neurosurgery. (4) Right arm weakness Is this a current diagnosis for this admission?: Yes Summary: Pt will follow up with Neurosurgery. (5) Obesity (BMI 30.0-34.9) Is this a current diagnosis for this admission?: Yes Summary: Recommend dietary changes. (6) HLD (hyperlipidemia) Is this a current diagnosis for this admission?: Yes Summary: Dietary changes. Pt states that she can not tolerate statin (7) BLESSING (obstructive sleep apnea) Is this a current diagnosis for this admission?: Yes Summary: Supportive. (8) GERD (gastroesophageal reflux disease) Is this a current diagnosis for this admission?: Yes Summary: PPI (9) Hep C w/o coma, chronic Is this a current diagnosis for this admission?: Yes Summary: Supportive Care. (10) Diabetes Is this a current diagnosis for this admission?: Yes Summary: Continue home regimen (11) HTN (hypertension) Is this a current diagnosis for this admission?: Yes Summary: Pt was placed on Norvasc. - Additional Information Resuscitation Status: Full Code Discharge Diet: Cardiac Discharge Activity: Activity As Tolerated Home Medications: Fluoxetine HCl [Prozac 20 mg Capsule] 40 mg PO DAILY 10/21/16 Insulin Detemir [Levemir Flextouch] 50 unit SQ Q12 10/21/16 Losartan/Hydrochlorothiazide [Hyzaar 100-25 Tablet] 1 tab PO DAILY 10/21/16 Naproxen 500 mg PO Q12 10/21/16 Omeprazole 20 mg PO DAILY 10/21/16 Trazodone HCl [Desyrel] 100 mg PO QHS 10/21/16 Amlodipine Besylate [Norvasc 10 mg Tablet] 10 mg PO DAILY #30 tablet 10/22/16 History of Present Illness History of Present Illness: Chest Pain Hospital Course Hospital Course: Patient is 66-year-old female that was admitted to our facility with complaint of chest pain. Patient complained of having neck pain that had been occurring for the last several months. Patient also states that she has decreased strength in the right arm. Patient states that the chest pain that she experienced today brought her to the emergency room due to concern for possible heart problem. Patient reported that she had been having pain in her back for the last couple weeks but then she developed left sided chest pain. Patient denies sweating, shortness of breath, vomiting, or nausea. Patient was admitted to the hospital where she had serial troponins which were negative EKG showed no abnormal changes. Due to patient being diabetic and have hyperlipidemia patient underwent a nuclear stress test that demonstrated no evidence of ischemia. Patient had an MRI of cervical spine that demonstrated degenerative changes at C3-C4 and C5-C6. Patient was noted to have elevated blood pressure therefore was placed on Norvasc which helped control blood pressure. Patient was told that she will need follow-up with her outpatient doctor for blood pressure and diabetes management. Patient was also told that she will need to follow-up with neurosurgeon as outpatient. Physical Exam Vital Signs: Temp Pulse Resp BP Pulse Ox 97.8 F 74 20 140/75 H 92 10/22/16 11:25 10/22/16 11:25 10/22/16 11:25 10/22/16 11:25 10/22/16 11:25 Intake & Output 10/21/16 10/22/16 10/23/16 06:59 06:59 06:59 Intake Total 155 Balance 155 Weight 78 kg General appearance: PRESENT: no acute distress, well-developed, well-nourished Head exam: PRESENT: atraumatic, normocephalic Eye exam: PRESENT: conjunctiva pink, EOMI, PERRLA. ABSENT: scleral icterus Ear exam: PRESENT: normal external ear exam Mouth exam: PRESENT: moist, tongue midline Neck exam: ABSENT: carotid bruit, JVD, lymphadenopathy, thyromegaly Respiratory exam: PRESENT: clear to auscultation yovanny. ABSENT: rales, rhonchi, wheezes Pulses: PRESENT: normal dorsalis pedis pul Vascular exam: PRESENT: normal capillary refill GI/Abdominal exam: PRESENT: normal bowel sounds, soft. ABSENT: distended, guarding, mass, organolmegaly, rebound, tenderness Rectal exam: PRESENT: deferred Extremities exam: PRESENT: full ROM. ABSENT: calf tenderness, clubbing, pedal edema Neurological exam: PRESENT: alert, awake, oriented to person, oriented to place , oriented to time, oriented to situation, CN II-XII grossly intact. ABSENT: motor sensory deficit Psychiatric exam: PRESENT: appropriate affect, normal mood. ABSENT: homicidal ideation, suicidal ideation Skin exam: PRESENT: dry, intact, warm. ABSENT: cyanosis, rash Results Laboratory Results: 10/22/16 04:25 10/22/16 04:25 10/22/16 10/22/16 04:25 04:25 WBC 8.3 RBC 4.60 Hgb 14.7 Hct 42.9 MCV 93 MCH 32.0 MCHC 34.3 RDW 13.2 Plt Count 299 Seg Neutrophils % 43.0 Lymphocytes % 36.3 Monocytes % 15.1 H Eosinophils % 4.8 Basophils % 0.8 Absolute Neutrophils 3.6 Absolute Lymphocytes 3.0 Absolute Monocytes 1.3 Absolute Eosinophils 0.4 Absolute Basophils 0.1 Sodium 142.2 Potassium 4.7 Chloride 100 Carbon Dioxide 34 H Anion Gap 8 BUN 15 Creatinine 0.77 Est GFR ( Amer) > 60 Est GFR (Non-Af Amer) > 60 Glucose 136 H Calcium 10.6 H Triglycerides 306 H Cholesterol 210.71 H LDL Cholesterol Direct 126 H VLDL Cholesterol 61.2 H HDL Cholesterol 40 10/21/16 10/21/16 10/22/16 22:36 22:36 04:25 Creatine Kinase 45 Troponin I < 0.012 < 0.012 10/22/16 10/22/16 04:25 10:29 Creatine Kinase 36 Troponin I < 0.012 Impressions: Chest X-Ray 10/21/16 16:35 IMPRESSION: NO ACUTE RADIOGRAPHIC FINDING IN THE CHEST. Cervical Spine MRI 10/22/16 00:00 IMPRESSION: Limited study. No high-grade central or foraminal encroachment. Patient my tolerate CT better than MRI for future imaging Qualifiers PATEINT BEING DISCHARGED WITH ANY OF THE FOLLOWING DIAGNOSIS?: No
== END 2016-10-22 16:06 | disposition home or self-care (01) | DRG 313 ==
LOC: ER 16:06 → EH 18:13 → OBSVTOIN 18:13 → EH 18:16 → UNDOADMOB 18:16 → EH 19:27 → 4S 19:27
DX: R07.89 Other chest pain (principal); M54.12 Radiculopathy, cervical region; G47.33 Obstructive sleep apnea (adult) (pediatric); K21.9 Gastro-esophageal reflux disease without esophagitis; E11.9 Type 2 diabetes mellitus without complications; B18.2 Chronic viral hepatitis C; E78.5 Hyperlipidemia, unspecified; I10 Essential (primary) hypertension; R53.1 Weakness; F17.210 Nicotine dependence, cigarettes, uncomplicated; Z88.8 Allergy status to other drugs, medicaments and biological substances; Z90.710 Acquired absence of both cervix and uterus
CPT/HCPCS: 36415; 71010; 72141; 78452; 80048; 80053; 80061; 82550; 82553; 82962; 84439; 84443; 84484; 85025; 93005; 93010; 93017; 99285; A9500; J0280; J1650; J1815; J2785; Q9969

== ENCOUNTER → 2016-10-21 | Outpatient (CLI) | payer OTHER ==
--- NOTE | 2016-10-21 16:51 | RADIOLOGY REPORT (SQ) ---
EXAM DESCRIPTION: HAND BILATERAL 3 VIEWS COMPLETED DATE/TIME: 10/21/2016 4:00 pm REASON FOR STUDY: BILATERAL HAND PAIN/SWELLING M79.642 PAIN IN LEFT HAND M79.641 PAIN IN RIGHT CRENSHAW D COMPARISON: None. EXAM PARAMETERS: NUMBER OF VIEWS: Three views right hand. Three views left hand. TECHNIQUE: AP, lateral and oblique radiographic images acquired of bilateral hands. LIMITATIONS: None. FINDINGS: RIGHT HAND: MINERALIZATION: Normal. BONES: No acute fracture or dislocation. No worrisome bone lesions. No significant osteophytes. JOINTS: No erosions. No kelsea-articular osteopenia. No chondrocalcinosis. SOFT TISSUES: No swelling. No calcifications. OTHER: No other significant finding. LEFT HAND: MINERALIZATION: Normal. BONES: No acute fracture or dislocation. No worrisome bone lesions. No significant osteophytes. JOINTS: No erosions. No kelsea-articular osteopenia. No chondrocalcinosis. SOFT TISSUES: No swelling. No calcifications. OTHER: No other significant finding. IMPRESSION: NEGATIVE STUDY BILATERAL HANDS. NO ACUTE POST-TRAUMATIC CHANGES. NO EXPLANATION FOR PAIN . TECHNICAL DOCUMENTATION: JOB ID: [id number]- All Rights Reserved
== END ==
LOC: RAD 15:41
DX: M79.642 Pain in left hand (principal); M79.641 Pain in right hand

== ENCOUNTER → 2016-10-21 | Outpatient (CLI) | payer OTHER ==
[2016-10-21 16:41] LABS: ANION GAP 9 (5-19); BLOOD UREA NITROGEN 13 mg/dL (7-20); CALCIUM 10.1 mg/dL (8.4-10.2); CARBON DIOXIDE 31 mmol/L (22-30); CHLORIDE 101 mmol/L (98-107); CREATININE RESULT 0.64 mg/dL (0.52-1.25); GLUCOSE 102 mg/dL (75-110); POTASSIUM 4.4 mmol/L (3.6-5.0); SODIUM 141.2 mmol/L (137-145)
[2016-10-21 17:50] LABS: C-REACTIVE PROTEIN < 5.0 mg/L (<10.0)
[2016-10-24 07:06] LABS: CYCLIC CITRUL PEPTIDE IGG/A AB 3 units (0-19)
== END ==
LOC: CCC 14:23
DX: E11.8 Type 2 diabetes mellitus with unspecified complications (principal); M79.642 Pain in left hand; M79.641 Pain in right hand
CPT/HCPCS: 36415; 80048; 82607; 82746; 85652; 86038; 86140; 86200; 86430

== ENCOUNTER → 2016-11-04 | Outpatient (CLI) | payer OTHER | LOC: CCC 11:38 | DX: R76.8 Other specified abnormal immunological findings in serum (principal) | CPT/HCPCS: 36415; 86200 ==

== ENCOUNTER → 2016-11-07 | Outpatient (CLI) | payer OTHER ==
--- NOTE | 2016-11-07 10:21 | RADIOLOGY REPORT (SQ) ---
EXAM DESCRIPTION: CT ABD/PELVIS WITH IV ORAL COMPLETED DATE/TIME: 11/07/2016 9:12 am REASON FOR STUDY: UNSPEC OVARIAN CYST LT SIDE (N83.202) N83.202 UNSPECIFIED OVARIAN CYST, LEFT SIDE COMPARISON: Pelvic ultrasound 09/04/2016 CT abdomen pelvis 02/05/2016 TECHNIQUE: CT scan of the abdomen and pelvis performed using helical scanning technique with dynamic intravenous contrast injection. The patient drank oral contrast. Images reviewed with lung, soft ti ssue, and bone windows. Reconstructed coronal and sagittal MPR images reviewed. Delayed images for ev aluation of the urinary system also acquired. All images stored on PACS. All CT scanners at this facility use dose modulation, iterative reconstruction, and/or weight based d osing when appropriate to reduce radiation dose to as low as reasonably achievable (ALARA). [facility]: Dose Right [facility]: CareDose [facility]: Dose Right [facility]: Teradose 4D [facility]: [place] [employer] CONTRAST TYPE AND DOSE: contrast/concentration: Isovue 370.00 mg/ml; Total Contrast Delivered: 84.0 ml; Total Saline Delivered: 69.0 ml RENAL FUNCTION: Creatinine 0.77 RADIATION DOSE: Up-to-date CT equipment and radiation dose reduction techniques were employed. CTDIv ol: 11.4 - 12.7 mGy. DLP: 1200 mGy-cm.. LIMITATIONS: None. FINDINGS: LOWER CHEST: No significant findings. No nodules or infiltrates. LIVER: Normal size. No masses. No dilated ducts. SPLEEN: Normal size. No focal lesions. PANCREAS: No masses. No significant calcifications. No adjacent inflammation or peripancreatic fluid collections. Pancreatic duct not dilated. GALLBLADDER: No identified stones by CT criteria. No inflammatory changes to suggest cholecystitis. ADRENAL GLANDS: No significant masses or asymmetry. RIGHT KIDNEY AND URETER: No solid masses. 5 mm right midpole renal cortical cyst No significant calc ifications. No hydronephrosis or hydroureter. LEFT KIDNEY AND URETER: No solid masses. 4 mm left upper pole intrarenal nonobstructive stone. No hydronephrosis or hydroureter. AORTA AND VESSELS: No aneurysm. No dissection. Renal arteries, SMA, celiac without stenosis. RETROPERITONEUM: No retroperitoneal adenopathy, hemorrhage or masses. BOWEL AND PERITONEAL CAVITY: No masses or inflammatory changes. No free fluid or peritoneal masses. Patient drank oral contrast. APPENDIX: Normal. PELVIS: No mass. No free fluid. Normal bladder. Post hysterectomy. The left ovary measures 3.8 x 2.6 cm. This is smaller than on 02/05/2016 CT. Left ovary was identif ied at ultrasound 09/04/2016, without significant masses or cysts. Right ovary not identified. ABDOMINAL WALL: No masses. No hernias. BONES: No significant or acute findings. OTHER: No other significant finding. IMPRESSION: NO SIGNIFICANT OR ACUTE FINDING IN THE ABDOMEN OR PELVIS ON CT SCAN WITH IV CONTRAST. TECHNICAL DOCUMENTATION: JOB ID: [id number] Quality ID # [id number]: Final reports with documentation of one or more dose reduction techniques (e.g., Au tomated exposure control, adjustment of the mA and/or kV according to patient size, use of iterative reconstruction technique) 2010 [employer]- All Rights Reserved
== END ==
LOC: RAD 08:20
DX: N83.202 Unspecified ovarian cyst, left side (principal)
CPT/HCPCS: 74177

== ENCOUNTER → 2017-02-26 | Outpatient (CLI) | payer OTHER ==
[2017-02-26 11:36] LABS: ABSOLUTE BASOPHILS # (AUTO) 0.2 10^3/uL (0.0-0.2); ABSOLUTE EOSINOPHILS # (AUTO) 0.4 10^3/uL (0.0-0.6); ABSOLUTE LYMPHOCYTES (AUTO) 2.4 10^3/uL (0.5-4.7); ABSOLUTE MONOCYTES (AUTO) 0.8 10^3/uL (0.1-1.4); ABSOLUTE NEUT (AUTO) 3.5 10^3/uL (1.7-8.2); BASOPHILS % (AUTO) 2.3 % (0-2); HEMATOCRIT 46.7 % (36.0-47.0); HEMOGLOBIN 15.7 g/dL (12.0-15.5); LYMPHOCYTES % (AUTO) 33.2 % (13-45); MEAN CORPUSCULAR HEMOGLOBIN 31.2 pg (27.0-33.4); MEAN CORPUSCULAR HGB CONC 33.7 g/dL (32.0-36.0); MEAN CORPUSCULAR VOLUME 93 fl (80-97); MONOCYTES % (AUTO) 11.3 % (3-13); PLATELET COUNT 325 10^3/uL (150-450); RED BLOOD COUNT 5.04 10^6/uL (3.72-5.28); RED CELL DISTRIBUTION WIDTH 13.1 % (11.5-14.0); SEGMENTED NEUTROPHILS % (AUTO) 48.2 % (42-78); TOTAL CELLS COUNTED % (AUTO) 100 %; WHITE BLOOD COUNT 7.3 10^3/uL (4.0-10.5)
[2017-02-26 12:01] LABS: ALANINE AMINOTRANSFERASE 28 U/L (9-52); ALBUMIN 4.1 g/dL (3.5-5.0); ALKALINE PHOSPHATASE 67 U/L (38-126); ANION GAP 8 (5-19); ASPARTATE AMINO TRANSFERASE 22 U/L (14-36); BILIRUBIN,DIRECT 0.2 mg/dL (0.0-0.4); BILIRUBIN,TOTAL 0.7 mg/dL (0.2-1.3); BLOOD UREA NITROGEN 17 mg/dL (7-20); CALCIUM 10.7 mg/dL (8.4-10.2); CARBON DIOXIDE 33 mmol/L (22-30); CHLORIDE 101 mmol/L (98-107); CHOLESTEROL 210.23 mg/dL (0-200); GLUCOSE 145 mg/dL (75-110); SODIUM 142.4 mmol/L (137-145); TRIGLYCERIDES 149 mg/dL (<150)
[2017-02-26 12:17] LABS: DIRECT LDL 135 mg/dL (<100)
== END ==
LOC: OD 11:10
DX: I10 Essential (primary) hypertension (principal); E11.8 Type 2 diabetes mellitus with unspecified complications; E78.4 Other hyperlipidemia
CPT/HCPCS: 36415; 80053; 80061; 83036; 84443; 85025

== ENCOUNTER 2017-03-04 20:17 | Emergency (ER) | payer MEDICAID, OTHER ==
[2017-03-04 20:29] VITALS: BP 123/67
--- NOTE | 2017-03-04 22:33 | ER Document Report ---
ED Respiratory Problem - General Chief Complaint: Cold Symptoms Stated Complaint: CHEST CONGESTION,COUGH Time Seen by Provider: 03/04/17 22:33 Notes: 66-year-old female patient to the emergency department with increasing cough. Wheezing. Patient is a smoker. Symptoms have been present for several days. Nothing seems to make it better or worse. Has a constant tickle in her throat. Took some antibiotics a few weeks ago and it helped for short while but she only had 5 days worth. TRAVEL OUTSIDE OF THE [place] IN LAST 30 DAYS: No - HPI Patient complains to provider of: Cough, Hurts to breath Severity: Moderate Short of Breath: Mild - Related Data Allergies/Adverse Reactions: rosuvastatin [From Crestor] Adverse Reaction (Verified 10/21/16 16:09) Past Medical History - General Information source: Patient - Social History Smoking Status: Current Every Day Smoker Cigarette use (# per day): Yes Frequency of alcohol use: Occasional Drug Abuse: None Lives with: Alone Family History: Reviewed & Not Pertinent Patient has suicidal ideation: No Patient has homicidal ideation: No - Past Medical History Cardiac Medical History: Reports: Hx Hypertension Endocrine Medical History: Reports: Hx Diabetes Mellitus Type 2 Renal/ Medical History: Denies: Hx Peritoneal Dialysis GI Medical History: Reports: Hx Gastroesophageal Reflux Disease, Hx Hepatitis - C Psychiatric Medical History: Reports: Hx Depression Infectious Medical History: Reports: Hx Hepatitis - C Past Surgical History: Reports: Hx Section - x1, Hx Gynecologic Surgery - Lump removal from L breast, Hx Hysterectomy, Hx Tonsillectomy - Immunizations Hx Diphtheria, Pertussis, Tetanus Vaccination: Yes Review of Systems - Review of Systems Constitutional: No symptoms reported EENT: No symptoms reported Cardiovascular: No symptoms reported Respiratory: See HPI, Cough, Hurts to breathe, Short of breath Gastrointestinal: No symptoms reported Musculoskeletal: No symptoms reported Skin: No symptoms reported Physical Exam - Vital signs Vitals: Temp Pulse Resp BP Pulse Ox 98.6 F 91 20 123/67 97 03/04/17 20:28 03/04/17 20:28 03/04/17 20:28 03/04/17 20:28 03/04/17 20:28 Interpretation: Normal - General General appearance: Appears well, Alert - HEENT Head: Normocephalic, Atraumatic Eyes: Normal Pupils: PERRL - Respiratory Respiratory status: No respiratory distress Chest status: Nontender Breath sounds: Normal, Nonproductive cough, Wheezing Chest palpation: Normal - Cardiovascular Rhythm: Regular Heart sounds: Normal auscultation Murmur: No - Abdominal Inspection: Normal Distension: No distension Bowel sounds: Normal Tenderness: Nontender Organomegaly: No organomegaly - Extremities General upper extremity: Normal inspection, Nontender, Normal color, Normal ROM , Normal temperature General lower extremity: Normal inspection, Nontender, Normal color, Normal ROM , Normal temperature, Normal weight bearing. No: Edema, Mónica's sign - Neurological Neuro grossly intact: Yes Cognition: Normal Orientation: AAOx4 [place] Coma Scale Eye Opening: Spontaneous Reena Coma Scale Verbal: Oriented [place] Coma Scale Motor: Obeys Commands [place] Coma Scale Total: 15 Speech: Normal Motor strength normal: LUE, RUE, LLE, RLE Sensory: Normal Course - Re-evaluation Re-evalutation: 03/04/17 22:46 Will start patient on some prednisone, albuterol, antibiotics. Will send her home with some hydrocodone tablets to get her through the night with a cough. Will DC at this time. - Vital Signs Vital signs: Temp Pulse Resp BP Pulse Ox 98.6 F 91 20 123/67 97 03/04/17 20:28 03/04/17 20:28 03/04/17 20:28 03/04/17 20:28 03/04/17 20:28 Discharge - Discharge Clinical Impression: Acute bronchitis Qualifiers: Bronchitis organism: unspecified organism Qualified Code(s): J20.9 - Acute bronchitis, unspecified Condition: Good Disposition: HOME, SELF-CARE Instructions: Bronchitis With Bronchospasm (Wheezing) ([facility]) Prescriptions: Albuterol Sulfate [Proair HFA Inhalation Aerosol 8.5 gm MDI] 2 puff IH Q4H PRN # 1 mdi PRN Reason: Azithromycin 250 mg PO DAILY 6 Days #6 tablet Hydrocodone/Acetaminophen [[place] 5-325 mg Tabs (6 Tab/ER Disp)] 6 tab PO TID 2 Days #6 dspk Prednisone [Deltasone 20 mg Tablet] 3 tab PO DAILY 5 Days #15 tablet
[2017-03-04] MEDS ORDERED: PREDNISONE 20 MG TABLET PO ONE (22:42)
[2017-03-04] MEDS ORDERED: AZITHROMYCIN 250 MG TABLET PO ONE (22:42)
[2017-03-04] MEDS ORDERED: ALBUTEROL SULFATE 0.083% NEB 2.5 MG/3 ML AMPUL NEB ONE (22:42)
[2017-03-04] MEDS ORDERED: HYDROCODONE/ACETAMINOPHEN 5-325 MG (6 TAB/ER DISP) PO PRN (23:11)
== END 2017-03-04 23:15 | disposition home or self-care (01) ==
LOC: ER 20:17
DX: J20.9 Acute bronchitis, unspecified (principal); R07.9 Chest pain, unspecified; R06.2 Wheezing; F17.210 Nicotine dependence, cigarettes, uncomplicated; I10 Essential (primary) hypertension; Z90.710 Acquired absence of both cervix and uterus; Z86.19 Personal history of other infectious and parasitic diseases
CPT/HCPCS: 94640; 99283; Q0144; J7512

== ENCOUNTER 2017-04-13 07:18 | Day surgery (SDC) | payer MEDICARE, MEDICAID ==
[2017-04-13] MEDS ORDERED: PROPOFOL INJ 200 MG/20 ML VIAL IV ONE ×2 (07:19→09:13)
[2017-04-13 09:26] VITALS: BP 120/75
--- NOTE | 2017-04-13 14:29 | Operative Report ---
Operative Report DATE OF SURGERY: 04/13/17 Operative Report: The risks, benefits and alternatives of the procedure including risks of bleeding, perforation requiring surgery are explained to the patient in detail and informed consent is obtained. Patient was taken back to the endoscopy suite and placed in the left, a timeout was called. Propofol medications administered. A rectal examination is done which did not reveal any masses, tears or fissures. An Olympus videoscope was inserted into the patient's rectum. Scope was then carefully advanced all the way to the cecum. The cecum was identified by the usual anatomical landmarks including the ileocecal valve as well as the appendiceal office. Photodocumentation is obtained. The scope was then sequentially pulled back via the various segments of the colon including the ascending colon, hepatic flexure, transverse colon, splenic flexure, descending colon and finding to the rectosigmoid portions of the colon. Retroflexion maneuvers performed. PREOPERATIVE DIAGNOSIS: Colorectal cancer screening. POSTOPERATIVE DIAGNOSIS: Multiple polyps noted throughout the colon which were removed via snare polypectomy and retrieved. OPERATION: Colonoscopy with snare polypectomy SURGEON: LAISHA CORONA ANESTHESIA: LMAC TISSUE REMOVED OR ALTERED: As noted above. COMPLICATIONS: None. ESTIMATED BLOOD LOSS: None. INTRAOPERATIVE FINDINGS: As noted above. PROCEDURE: Patient tolerated procedure well. No immediate postprocedure complications are noted. Patient discharged in good condition. Discharge date 04/13/2017. Discharge diet: Regular. Discharge activity: Regular. 2-3 week follow-up to discuss findings. Patient is instructed call the office or proceed to the emergency room should there be any further problems or questions. We will wait on pathology. 3 year surveillance colonoscopy.
== END 2017-04-13 09:25 | disposition home or self-care (01) ==
LOC: END 07:18
PROVIDERS: ATTEND Internal Medicine Gastroenterology
PROC: 0DBN8ZX Excision of Sigmoid Colon, Via Natural or Artificial Opening Endoscopic, Diagnostic (ICD-10-PCS; 2017-04-13)
PROC: 0DBP8ZX Excision of Rectum, Via Natural or Artificial Opening Endoscopic, Diagnostic (ICD-10-PCS; 2017-04-13)
PROC: 0DBK8ZX Excision of Ascending Colon, Via Natural or Artificial Opening Endoscopic, Diagnostic (ICD-10-PCS; principal; 2017-04-13 08:30)
DX: K63.5 Polyp of colon (principal); D12.3 Benign neoplasm of transverse colon; F17.210 Nicotine dependence, cigarettes, uncomplicated; Z79.899 Other long term (current) drug therapy; Z79.1 Long term (current) use of non-steroidal anti-inflammatories (NSAID); Z88.8 Allergy status to other drugs, medicaments and biological substances
CPT/HCPCS: 45385; 82962; 88305 ×2; J2704; 811

== ENCOUNTER → 2017-11-19 | Outpatient (CLI) | payer MEDICARE, MEDICAID ==
--- NOTE | 2017-11-19 11:56 | RADIOLOGY REPORT (SQ) ---
EXAM DESCRIPTION: CT ABD/PELVIS WITH IV ORAL COMPLETED DATE/TIME: 11/19/2017 10:03 am REASON FOR STUDY: OVARIAN CA (C56.2) C56.2 MALIGNANT NEOPLASM OF LEFT OVARY . Status post chemothe rapy. COMPARISON: None. TECHNIQUE: CT scan of the abdomen and pelvis performed using helical scanning technique with dynamic intravenous contrast injection. Oral contrast given. . Images reviewed with lung, soft tissue, and bone windows. Reconstructed coronal and sagittal MPR images reviewed. Delayed images for evaluation of the urinary system also acquired. All images stored on PACS. All CT scanners at this facility use dose modulation, iterative reconstruction, and/or weight based d osing when appropriate to reduce radiation dose to as low as reasonably achievable (ALARA). [facility]: Dose Right [facility]: CareDose [facility]: Dose Right [facility]: Teradose 4D [facility]: [employer] CONTRAST TYPE AND DOSE: contrast/concentration: Isovue 350.00 mg/ml; Total Contrast Delivered: 98.0 ml; Total Saline Delivered: 72.0 ml RENAL FUNCTION: Creatinine: 0.74 RADIATION DOSE: CT Rad equipment meets quality standard of care and radiation dose reduction techniq ues were employed. CTDIvol: 17.5 - 18.8 mGy. DLP: 1888 mGy-cm.. LIMITATIONS: None. FINDINGS: LOWER CHEST: Chronic scarring right lower lobe. Calcified granuloma right lower lobe. Sm all pericardial effusion. Atherosclerotic coronary artery calcification. LIVER: No abnormality. SPLEEN: No abnormality. PANCREAS: No abnormality. GALLBLADDER: No abnormality. ADRENAL GLANDS: No abnormality. RIGHT KIDNEY AND URETER: No abnormality. Cortical cysts posterior upper pole. Minimal atherosclerot ic change origin right renal artery. LEFT KIDNEY AND URETER: Nonobstructive calculus upper pole left kidney. Renal vascular calcification left kidney. AORTA AND VESSELS: Atherosclerotic change abdominal aorta and iliac vessels. No dissection. Renal ar teries, SMA, celiac without stenosis. RETROPERITONEUM: No retroperitoneal adenopathy. BOWEL AND PERITONEAL CAVITY: No masses or inflammatory changes. No free fluid or peritoneal masses. APPENDIX: Normal. PELVIS: Uterus: Absent. Urinary bladder: Urinary bladder is thick-walled. The possibility of infla mmatory change cannot be excluded. Large and small bowel: Diverticulosis. ABDOMINAL WALL: Umbilical hernia containing fat. BONES: Dorsal and lumbar spondylosis. Degenerated circumferential bulging disc L4-5. Degenerated ci rcumferential bulging disc /osteophyte protrusion posteriorly to the left L5-S1. IMPRESSION: 1. Chronic right basilar scarring. Small pericardial effusion. 2. Nonobstructive doni culus upper pole left kidney. Otherwise, normal CT abdomen and pelvis with contrast. TECHNICAL DOCUMENTATION: JOB ID: [id number] Quality ID # [id number]: Final reports with documentation of one or more dose reduction techniques (e.g., Au tomated exposure control, adjustment of the mA and/or kV according to patient size, use of iterative reconstruction technique) 2010 [employer]- All Rights Reserved Reading location - IP/workstation name: [email or web address]
== END ==
LOC: RAD 09:31
PROVIDERS: ATTEND Internal Medicine Hematology & Oncology
DX: C56.2 Malignant neoplasm of left ovary (principal); N20.0 Calculus of kidney; I31.3 Pericardial effusion (noninflammatory)
CPT/HCPCS: 74177

== ENCOUNTER 2017-12-04 10:55 | Observation (INO) | payer MEDICARE, MEDICAID ==
[2017-11-27 10:41] LABS: HEMATOCRIT 39.3 % (36.0-47.0); HEMOGLOBIN 13.4 g/dL (12.0-15.5); MEAN CORPUSCULAR HEMOGLOBIN 33.5 pg (27.0-33.4); MEAN CORPUSCULAR HGB CONC 34.3 g/dL (32.0-36.0); MEAN CORPUSCULAR VOLUME 98 fl (80-97); PLATELET COUNT 205 10^3/uL (150-450); RED BLOOD COUNT 4.01 10^6/uL (3.72-5.28); RED CELL DISTRIBUTION WIDTH 13.9 % (11.5-14.0); WHITE BLOOD COUNT 6.7 10^3/uL (4.0-10.5)
[2017-11-27 10:47] LABS: APPEARANCE,URINE CLEAR; BILIRUBIN,URINE NEGATIVE (NEGATIVE); COLOR,URINE YELLOW; GLUCOSE, URINE NEGATIVE (NEGATIVE); KETONES,URINE NEGATIVE (NEGATIVE); LEUKOCYTE ESTERASE,URINE NEGATIVE (NEGATIVE); NITRITE,URINE NEGATIVE (NEGATIVE); PROTEIN,URINE NEGATIVE (NEGATIVE); URINE SPECIFIC GRAVITY 1.009; UROBILINOGEN,URINE NEGATIVE mg/dL (<2.0)
--- NOTE | 2017-11-27 11:17 | RADIOLOGY REPORT (SQ) ---
EXAM DESCRIPTION: CHEST PA/LATERAL COMPLETED DATE/TIME: 11/27/2017 10:28 am REASON FOR STUDY: PRE-OP COMPARISON: 10/21/2016 EXAM PARAMETERS: NUMBER OF VIEWS: two views TECHNIQUE: Digital Frontal and Lateral radiographic views of the chest acquired. RADIATION DOSE: NA LIMITATIONS: none FINDINGS: LUNGS AND PLEURA: No opacities, masses or pneumothorax. No pleural effusion. MEDIASTINUM AND HILAR STRUCTURES: No masses or contour abnormalities. HEART AND VASCULAR STRUCTURES: Heart normal size. No evidence for failure. BONES: No acute findings. HARDWARE: Right Ondedk-L-Scmj catheter with the tip in the region of the superior vena cava. New fi nding since the prior study. . OTHER: No other significant finding. IMPRESSION: 1. Interval placement of Right Sdndte-O-Xfzq catheter since the prior study dated 017. 2. No acute radiographic finding in the chest. TECHNICAL DOCUMENTATION: JOB ID: [id number] [employer]- All Rights Reserved Reading location - IP/workstation name: [email or web address]
[2017-11-27 11:21] LABS: ANION GAP 10 (5-19); BLOOD UREA NITROGEN 20 mg/dL (7-20); CALCIUM 9.7 mg/dL (8.4-10.2); CARBON DIOXIDE 33 mmol/L (22-30); CHLORIDE 99 mmol/L (98-107); GLUCOSE 151 mg/dL (75-110); POTASSIUM 4.4 mmol/L (3.6-5.0); SODIUM 141.5 mmol/L (137-145)
--- NOTE | 2017-11-27 22:39 | EKG REPORT ---
SEVERITY:- ABNORMAL ECG - SINUS RHYTHM MULTIPLE VENTRICULAR PREMATURE COMPLEXES LEFT AXIS DEVIATION BORDERLINE R WAVE PROGRESSION, ANTERIOR LEADS : Confirmed by: Zulay Tyler MD 27-Nov-2017 22:39:15
[~2017-12-04 10:55] MED LIST: BUPIVACAINE HCL 0.5 % INJ/PF 30 ML SDV ONE; CEFAZOLIN 2 GM/D5W RTU 2 GM/50 ML RTUPB IV ONE; CEFAZOLIN 2 GM/D5W RTU 2 GM/50 ML RTUPB IV PRN; CEFAZOLIN SODIUM 2 GM in DEXTROSE 5%-WATER 100 ML IV SCH; LACTATED RINGERS 1000 ML IV PRN; LIDOCAINE 1% INJ-PF (10 MG/ML) 30 ML SDV ONE
[2017-12-04] MEDS ORDERED: ONDANSETRON HCL INJ/PF 4 MG/2 ML SDV IV PRN ×3 (13:32→17:30)
[2017-12-04] MEDS ORDERED: MORPHINE SULFATE 10 MG/ML INJ IV PRN (13:32)
[2017-12-04] MEDS ORDERED: DIPHENHYDRAMINE HCL 50 MG/ML VIAL IV PRN (13:32)
[2017-12-04] MEDS ORDERED: FENTANYL CITRATE INJ/PF 100 MCG/2 ML AMPUL IV PRN ×3 (13:32)
[2017-12-04] MEDS ORDERED: MEPERIDINE HCL/PF INJ 25 MG/1 ML DISP.SYRIN IV PRN (13:32)
[2017-12-04] MEDS ORDERED: PROMETHAZINE HCL INJ 25 MG/1 ML VIAL IV PRN ×2 (13:32)
--- NOTE | 2017-12-04 13:55 | Operative Report ---
Operative Report DATE OF SURGERY: 12/04/17 PREOPERATIVE DIAGNOSIS: Right carpal tunnel syndrome, lesion right thumb nailbed POSTOPERATIVE DIAGNOSIS: Same OPERATION: Endoscopic carpal tunnel release. Excision lesion right nail plate/ nailbed SURGEON: RENZO BROWN ANESTHESIA: GA TISSUE REMOVED OR ALTERED: Nail bed/nail plate sent to pathology and microbiology COMPLICATIONS: None ESTIMATED BLOOD LOSS: Minimal PROCEDURE: Indication for above procedure: 67-year-old female with history of carpal tunnel syndrome in her right wrist. She recently completed chemotherapy which worsens her neuropathic symptoms which were evident prior to this. At that point we discussed treatment options including operative versus nonoperative intervention decision was made to proceed with operative treatment. Also on examination she had evidence of a lesion along her thumb nail and given its location and appearance decision was made to proceed with concomitant excision and biopsy. Risks and benefits of the operative procedure were explained to the patient patient verbalized understanding consented for the procedure. Procedure In Detail: Patient was seen and evaluated in the preoperative holding area. The RIGHT upper extremity was initialized and marked. Patient received Ancef IV for bacterial prophylaxis. Patient was taken back to the operative room where transferred operative table. Patient was then placed under MAC anesthesia. Once adequately anesthetized, a nonsterile tourniquet was placed on the upper extremity. A surgical team debriefing was performed ensuring all instrumentation was available, the surgical procedure was discussed with possible concerns reviewed. Skin was prepped with alcohol and 10cc of 1% lidocaine without epinephrine was injected locally and w/in carpal canal. The upper extremity was prepped with chlorhexidine and alcohol and draped in a sterile fashion. A timeout was done identifying correct patient, procedure and extremity everyone in attendance agree with this and verbalized no concerns.The extremity was then exsanguinated the tourniquet was inflated to 250 mmHg. A transverse skin incision was made just proximal to the wrist flexion crease ulnar to the palmaris longus. Blunt dissection was performed down to the palmaris longus tendon which was retracted radially. Deep to the palmaris longus tendon was the volar carpal ligament this was incised identifying the median nerve deep. With the use of a [place] elevator any soft tissue/synovium was freed from the undersurface of the transverse carpal ligament. The hook of hamate was identified ulnarly. The ConMed cannulas were then introduced beginning with #1 progressing to a #3 gently dilating the carpal canal. I then introduced the scope within the cannula and identified transverse carpal ligament ensuring the median nerve was not visualized within the cannula. I triangulated distally with a 25-gauge needle identifying the distal aspect of the transverse carpal ligament, to ensure protection of the superficial palmar arch. The arthroscopic knife was used to incise the transverse carpal ligament under direct visualization with the arthroscopic camera. Any excess transverse fibers that remained after the first past were carefully released with a repeat pass. The median nerve was then directly visualized radially without disruption. Once this was completed I placed the #3 dilator and assured I got complete release of the transverse carpal ligament without residual compression. The median nerve was directly visualized and free of any overlying compression. I then turned my attention to release of the volar antebrachial fascia proximally. Once again a [place] was used to open the wound and I proceeded with cannula #1 to #3. The arthroscope was introduced into the cannula and under direct visualization the volar antebrachial fascia was released. Once this was complete I copiusly irrigated the wound with normal saline. The skin incision was closed with 4-0 Monocryl subcutaneous and a running subcuticular 4-0 Monocryl. This was reinforced with Dermabond and Steri -Strips. The ulnar aspect of the nail plate was then excised including the deep soft tissue preserving the sterile matrix. There is no evidence of definitive mass appreciated however the nail plate was split. A portion was sent to pathology daily portion sent to microbiology for AFB, fungal aerobic and anaerobic cultures. A portion of the nailbed and hyponychium was also excised and sent to pathology in formalin for diagnosis. The area was then copiously irrigated with normal saline. The small defect within the nailbed and hyponychium was reapproximated with 5-0 chromic gut suture. Wound was dressed Xeroform and a soft bandage. Sterile, 4 x 4's and a Kody bandage was placed loosely. Sponge counts, instrument counts and needle counts were correct. The was no intraoperative complications patient tolerated the procedure well and was stable to PACU. Postoperative plan: Patient will follow-up the office in 2 weeks at which point we will proceed with wound check and discuss pathology results.
--- NOTE | 2017-12-04 13:56 | Discharge Summary ---
Discharge Summary (SDC) - Discharge Final Diagnosis: Right carpal tunnel syndrome Date of Surgery: 12/04/17 Discharge Date: 12/04/17 Condition: Good Treatment or Instructions: Schedule Follow Up w/ Dr. Bassem Matthews @ [facility] to be seen in 10-14 days or as scheduled [place]: [place]: [place]: May remove dressing on postop day #3, keep incision covered and dry. Ice and elevate May begin finger range of motion attempting to make full fist. Stool softener of choice when on pain medication. Prescriptions: Hydrocodone/Acetaminophen [[place] 5-325 mg Tablet] 1 tab PO Q6 PRN #20 tablet PRN Reason: Referrals: MO HERZOG PA-C [Primary Care Provider] - Discharge Diet: As Tolerated Discharge Activity: No Lifting Over 10 Pounds, No Lifting/Push/Pulling Report the Following to Your Physician Immediately: Fever over 101 Degrees, Unusual Bleeding, Redness, Swelling, Warmth
[2017-12-04] MEDS ORDERED: IPRATROPIUM/ALBUTEROL 0.5-2.5 MG/3 ML AMPUL NEB ONE (14:35)
[2017-12-04] MEDS ORDERED: PHENYLEPHRINE HCL INJ/PF 10 MG/1 ML SDV ONE (16:03)
[2017-12-04] MEDS ORDERED: HYDROCODONE/ACETAMINOPHEN 5-325 MG TABLET ONE (16:28)
[2017-12-04] MEDS: HYDROCODONE/ACETAMINOPHEN 5-325 MG TABLET PO PRN (16:30)
[2017-12-04] MEDS ORDERED: IPRATROPIUM/ALBUTEROL 0.5-2.5 MG/3 ML AMPUL NEB PRN (17:30)
[2017-12-04] MEDS ORDERED: ZOLPIDEM TARTRATE 5 MG TABLET PO PRN (17:30)
[2017-12-04] MEDS ORDERED: ACETAMINOPHEN 325 MG TABLET PO PRN (17:30)
[2017-12-04] MEDS ORDERED: GLUCAGON,HUMAN RECOMB 1 MG INJ IM PRN ×2 (17:48→17:50)
[2017-12-04] MEDS ORDERED: DEXTROSE 50%-WATER 25 GM/50 ML DISP.SYRIN IV PRN ×4 (17:48→17:50)
[2017-12-04] MEDS ORDERED: DEXTROSE 40% GEL 15 GM TUBE PO PRN ×4 (17:48→17:50)
--- NOTE | 2017-12-04 18:13 | PDOC H&P ---
History of Present Illness Admission Date/PCP: MO HERZOG PA-C Patient complains of: Shortness of breath. History of Present Illness: HELDER SOLIZ is a 67 year old female past medical history of ovarian cancer status surgery and chemotherapy 6 rounds of chemotherapy. Last chemotherapy 09/16, hypertension, diabetes, obstructive sleep apnea, neuropathy, and tobacco abuse. Patient was admitted for an ambulatory surgery for right carpal tunnel syndrome. Post surgery she developed acute shortness of breath saturating 80% on room air. Hospitalist was consulted for overnight observation. On my encounter patient is sitting in bed with supplemental oxygen and not in any acute distress. She is very pleasant and cooperative with physical examination and history. She stated that she was doing fine before surgery but after surgery she developed acute shortness of breath which has improved after treatment with DuoNeb. Presently has has mild shortness of breath and productive nonbloody cough. Denies denies any recent long distance travel, immobilization or any surgery prior to current surgery. She is also denying any chest pain, fever, chills, nausea, vomiting, diarrhea, constipation or any urinary symptoms. Past Medical History Cardiac Medical History: Reports: Hypertension Denies: Coronary Artery Disease, Myocardial Infarction Pulmonary Medical History: Reports: Bronchitis - FEBRUARY 2017 Denies: Asthma, Chronic Obstructive Pulmonary Disease (COPD), Pneumonia Neurological Medical History: Denies: Seizures Endocrine Medical History: Reports: Diabetes Mellitus Type 2 GI Medical History: Reports: Gastroesophageal Reflux Disease, Hepatitis - C Musculoskeltal Medical History: Reports: Arthritis - R hip and hands Psychiatric Medical History: Reports: Depression Hematology: Denies: Anemia Past Surgical History Past Surgical History: Reports: Section - x1, Hysterectomy, Tonsillectomy Social History Smoking Status: Current Every Day Smoker Frequency of Alcohol Use: Occasional Hx Recreational Drug Use: Yes Drugs: Marijuana Hx Prescription Drug Abuse: No Family History Family History: Reviewed & Not Pertinent Parental Family History Reviewed: Yes Children Family History Reviewed: Yes Sibling(s) Family History Reviewed.: Yes Medication/Allergy Home Medications: Insulin Detemir [Levemir Flextouch] 40 unit SQ Q12 10/21/16 Losartan/Hydrochlorothiazide [Hyzaar 100-25 Tablet] 1 tab PO DAILY 10/21/16 Omeprazole 20 mg PO DAILY 10/21/16 Amlodipine Besylate [Norvasc 10 mg Tablet] 10 mg PO DAILY #30 tablet 10/22/16 Albuterol Sulfate [Proair HFA Inhalation Aerosol 8.5 gm MDI] 2 puff IH Q4H PRN # 1 mdi 03/04/17 Gabapentin 300 mg PO DAILY 05/20/17 Sertraline HCl [Zoloft 50 mg Tablet] 100 mg PO DAILY 05/20/17 Tramadol HCl 50 mg PO PRN PRN 11/27/17 Hydrocodone/Acetaminophen [[place] 5-325 mg Tablet] 1 tab PO Q6 PRN #20 tablet Metformin HCl 500 mg PO BID 12/04/17 Pregabalin [Lyrica 75 mg Capsule] 75 mg PO TID 12/04/17 Allergies/Adverse Reactions: latex Allergy (Intermediate, Verified 12/04/17 12:38) RASH rosuvastatin [From Crestor] Adverse Reaction (Severe, Verified 12/04/17 12:38) HEADACHES adhesive tape Adverse Reaction (Intermediate, Verified 12/04/17 12:38) Hives Review of Systems Review of Systems: As per HPI Physical Exam Vital Signs: Temp Pulse Resp BP Pulse Ox 98.2 F 87 18 132/69 H 94 12/04/17 16:00 12/04/17 17:30 12/04/17 17:30 12/04/17 17:30 12/04/17 17:30 Intake & Output 12/03/17 12/04/17 12/05/17 06:59 06:59 06:59 Intake Total 400 Output Total 5 Balance 395 Weight 90.72 kg General appearance: PRESENT: no acute distress, well-developed, well-nourished Head exam: PRESENT: atraumatic, normocephalic Eye exam: PRESENT: conjunctiva pink, EOMI, PERRLA. ABSENT: scleral icterus Ear exam: PRESENT: normal external ear exam Mouth exam: PRESENT: moist, tongue midline Neck exam: ABSENT: carotid bruit, JVD, lymphadenopathy, thyromegaly Respiratory exam: PRESENT: crackles - Bibasilar. ABSENT: rales, rhonchi, wheezes Cardiovascular exam: PRESENT: RRR. ABSENT: diastolic murmur, rubs, systolic murmur Pulses: PRESENT: normal dorsalis pedis pul Vascular exam: PRESENT: normal capillary refill GI/Abdominal exam: PRESENT: normal bowel sounds, soft. ABSENT: distended, guarding, mass, organolmegaly, rebound, tenderness Rectal exam: PRESENT: deferred Extremities exam: PRESENT: full ROM. ABSENT: calf tenderness, clubbing, pedal edema Musculoskeletal exam: PRESENT: ambulatory, deformity, dislocation, full ROM, normal inspection, tenderness, other Neurological exam: PRESENT: alert, awake, oriented to person, oriented to place , oriented to time, oriented to situation, CN II-XII grossly intact. ABSENT: motor sensory deficit Psychiatric exam: PRESENT: appropriate affect, normal mood. ABSENT: homicidal ideation, suicidal ideation Skin exam: PRESENT: dry, intact, warm. ABSENT: cyanosis, rash Results Laboratory Results: 11/27/17 09:38 12/04/17 11:54 12/04/17 11:54 Potassium 4.4 Impressions: Chest X-Ray 11/27/17 10:21 IMPRESSION: 1. Interval placement of Right Gjofpw-Y-Hiuy catheter since the prior study dated 10/21/2016. 2. No acute radiographic finding in the chest. Assessment & Plan - Diagnosis (1) Acute respiratory failure with hypoxia Is this a current diagnosis for this admission?: Yes Plan: She is high risk for PE due to underlying malignancy. Will admit to medical floor and order ABG. CTA to rule out any PE. (2) Depression Is this a current diagnosis for this admission?: No Plan: Restart home meds. Denies any suicidal or homicidal ideation. Outpatient psychiatry follow-up (3) Neuropathy Is this a current diagnosis for this admission?: No Plan: Likely due to underlying diabetes and chemotherapy. Restart home meds. (4) Ovarian cancer Is this a current diagnosis for this admission?: No Plan: Status post surgery and chemotherapy. Outpatient oncology follow-up. She has established oncology care as outpatient. (5) HTN (hypertension) Qualifiers: Hypertension type: essential hypertension Qualified Code(s): I10 - Essential (primary) hypertension Is this a current diagnosis for this admission?: No Plan: Start home meds. Monitor vitals. Adjust meds as needed. (6) Diabetes Qualifiers: Diabetes mellitus type: type 2 Diabetes mellitus [facility] insulin use: with [facility] use Diabetes mellitus complication status: with neurologic complications Diabetes mellitus complication detail: with polyneuropathy Qualified Code(s): E11.42 - Type 2 diabetes mellitus with diabetic polyneuropathy; Z79.4 - remote computer terminal operator (current) use of insulin; Z79.4 - jail ( current) use of insulin; Z79.4 - remote computer terminal operator (current) use of insulin; Z79.4 - jail (current) use of insulin Is this a current diagnosis for this admission?: No Plan: Accu-Chek, long-acting insulin, sliding scale, diabetic diet. Hold metformin. (7) Obesity (BMI 30.0-34.9) Is this a current diagnosis for this admission?: No Plan: Counseled on diet and lifestyle modification. (9) GERD (gastroesophageal reflux disease) Is this a current diagnosis for this admission?: No Plan: Restart home meds
[2017-12-04 19:28] LABS: ABSOLUTE BASOPHILS # (AUTO) 0.1 10^3/uL (0.0-0.2); ABSOLUTE LYMPHOCYTES (AUTO) 0.9 10^3/uL (0.5-4.7); ABSOLUTE MONOCYTES (AUTO) 0.3 10^3/uL (0.1-1.4); ABSOLUTE NEUT (AUTO) 10.5 10^3/uL (1.7-8.2); BASOPHILS % (AUTO) 1.1 % (0-2); EOSINOPHILS % (AUTO) 0.2 % (0-6); HEMATOCRIT 39.2 % (36.0-47.0); LYMPHOCYTES % (AUTO) 7.8 % (13-45); MEAN CORPUSCULAR HEMOGLOBIN 32.8 pg (27.0-33.4); MEAN CORPUSCULAR HGB CONC 33.3 g/dL (32.0-36.0); MEAN CORPUSCULAR VOLUME 99 fl (80-97); MONOCYTES % (AUTO) 2.4 % (3-13); PLATELET COUNT 210 10^3/uL (150-450); RED BLOOD COUNT 3.98 10^6/uL (3.72-5.28); RED CELL DISTRIBUTION WIDTH 14.2 % (11.5-14.0); SEGMENTED NEUTROPHILS % (AUTO) 88.5 % (42-78); TOTAL CELLS COUNTED % (AUTO) 100 %; WHITE BLOOD COUNT 11.8 10^3/uL (4.0-10.5)
[2017-12-04 19:48] LABS: ALANINE AMINOTRANSFERASE 36 U/L (9-52); ALBUMIN 3.9 g/dL (3.5-5.0); ALKALINE PHOSPHATASE 76 U/L (38-126); ANION GAP 11 (5-19); ASPARTATE AMINO TRANSFERASE 32 U/L (14-36); BILIRUBIN,DIRECT 0.1 mg/dL (0.0-0.4); BILIRUBIN,TOTAL 0.4 mg/dL (0.2-1.3); BLOOD UREA NITROGEN 19 mg/dL (7-20); CALCIUM 9.5 mg/dL (8.4-10.2); CARBON DIOXIDE 26 mmol/L (22-30); CHLORIDE 103 mmol/L (98-107); GLUCOSE 311 mg/dL (75-110); POTASSIUM 5.1 mmol/L (3.6-5.0); TOTAL PROTEIN 6.6 g/dL (6.3-8.2)
[2017-12-04] MEDS: PREGABALIN 75 MG CAPSULE PO SCH (20:12)
[2017-12-04] MEDS: DOCUSATE SODIUM 100 MG CAPSULE PO SCH (20:12)
--- NOTE | 2017-12-04 22:16 | RADIOLOGY REPORT (SQ) ---
EXAM DESCRIPTION: CT CHEST ANGIOGRAPHY WITHOUT THEN WITH IV CONTRAST COMPLETED DATE/TME: 12/04/2017 17:48 CLINICAL HISTORY: 67 years Female Rule out PE COMPARISON: None. TECHNIQUE: Contiguous axial images were obtained through the chest during the infusion of IV contrast. Reformatted images obtained. MIP reformatted images obtained. This exam was performed according to our department optimization program which includes automated exposure control, adjustment of the mA and/or kv according to patient size and/or use of iterative reconstruction technique. FINDINGS: No evidence aortic dissection or rupture. No pericardial or pleural effusion. Liver appears enlarged. There is some stranding around the gallbladder. Question cholecystitis. Recommend clinical correlation and consider further evaluation with ultrasound if indicated. No evidence to suggest pulmonary embolus. No significant thoracic adenopathy. Linear atelectasis in the lung bases right greater than left. IMPRESSION:No evidence of pulmonary embolus Linear atelectasis in the lung bases Small amount of stranding around the gallbladder with some indistinctness of the wall. Findings may reflect cholecystitis. Consider further evaluation with ultrasound if indicated
[2017-12-04] MEDS: OXYCODONE-ACETAMINOPHEN 5-325 MG TABLET PO PRN (22:35)
[2017-12-04] MEDS: HEPARIN SOD (PORCINE) 5,000 UNIT/ML 1 ML SYRINGE SUBCUT SCH (22:37)
[2017-12-04] MEDS: INSULIN DETEMIR 100 UNIT/ML 3 ML PEN SUBCUT SCH (22:59)
[2017-12-04] MEDS: INSULIN LISPRO 100 UNIT/ML 3 ML VIAL SUBCUT PRN (23:02)
[2017-12-04 23:28] LABS: ARTERIAL BLOOD BASE EXCESS 3.1 mmol/L; ARTERIAL BLOOD H2CO3 1.55 mmol/L (1.05-1.35); ARTERIAL BLOOD HCO3 29.2 mmol/L (20-24); ARTERIAL BLOOD O2 SATURATION 93.8 % (94-98); ARTERIAL BLOOD PCO2 51.4 mmHg (35-45); ARTERIAL BLOOD PH 7.37 (7.35-7.45); ARTERIAL BLOOD PO2 71.6 mmHg (80-100); ARTERIAL BLOOD TOTAL CO2 30.8 mmol/L (21-25)
[2017-12-04 23:30] LABS: ARTERIAL BLOOD FIO2 24%
[2017-12-05] MEDS: MORPHINE SULFATE 10 MG/ML INJ IV PRN ×2 (01:49→05:52)
[2017-12-05] MEDS: HEPARIN SOD (PORCINE) 5,000 UNIT/ML 1 ML SYRINGE SUBCUT SCH ×3 (05:21→21:57)
[2017-12-05] MEDS: LANSOPRAZOLE 15 MG TAB.RAP.DR PO SCH (05:22)
[2017-12-05 06:54] LABS: HEMATOCRIT 35.8 % (36.0-47.0); HEMOGLOBIN 12.1 g/dL (12.0-15.5); MEAN CORPUSCULAR HEMOGLOBIN 32.8 pg (27.0-33.4); MEAN CORPUSCULAR HGB CONC 33.8 g/dL (32.0-36.0); MEAN CORPUSCULAR VOLUME 97 fl (80-97); PLATELET COUNT 186 10^3/uL (150-450); RED CELL DISTRIBUTION WIDTH 13.9 % (11.5-14.0); WHITE BLOOD COUNT 11.9 10^3/uL (4.0-10.5)
[2017-12-05 07:22] LABS: ANION GAP 10 (5-19); BLOOD UREA NITROGEN 19 mg/dL (7-20); CALCIUM 9.4 mg/dL (8.4-10.2); CARBON DIOXIDE 27 mmol/L (22-30); CHLORIDE 103 mmol/L (98-107); GLUCOSE 138 mg/dL (75-110); POTASSIUM 4.2 mmol/L (3.6-5.0)
[2017-12-05] MEDS ORDERED: AZITHROMYCIN 250 MG TABLET PO ONE (09:24)
--- NOTE | 2017-12-05 09:30 | PDOC PROGRESS REPORT ---
Subjective Progress Note for:: 12/05/17 Subjective:: HELDER SOLIZ is a 67 year old female past medical history of ovarian cancer status surgery and chemotherapy 6 rounds of chemotherapy. Last chemotherapy 09/16, hypertension, diabetes, obstructive sleep apnea, neuropathy, and tobacco abuse. Patient was admitted for an ambulatory surgery for right carpal tunnel syndrome. Post surgery she developed acute shortness of breath saturating 80% on room air. Hospitalist was consulted for overnight observation. On my encounter patient is sitting in bed with supplemental oxygen and not in any acute distress. She is very pleasant and cooperative with physical examination and history. She stated that she was doing fine before surgery but after surgery she developed acute shortness of breath which has improved after treatment with DuoNeb. Presently has has mild shortness of breath and productive nonbloody cough. Denies denies any recent long distance travel, immobilization or any surgery prior to current surgery. She is also denying any chest pain, fever, chills, nausea, vomiting, diarrhea, constipation or any urinary symptoms. 12/05/2017. No acute events overnight. Patient is sitting comfortably in her bed and enjoying her breakfast. Stating that she could not get a good night sleep because of coughing and right wrist pain. She said that she has history of chronic bronchitis however never been diagnosed with COPD. Patient is a chronic heavy smoker. Patient denies any fever, shortness of breath, chest pain , chills, nausea, vomiting, diarrhea or constipation. Reason For Visit: G56.01 CARPAL TUNNEL SYNDROME, RIGHT UPPER LIMB Physical Exam Vital Signs: Temp Pulse Resp BP Pulse Ox 97.5 F 75 18 143/73 H 95 12/05/17 07:31 12/05/17 07:31 12/05/17 07:31 12/05/17 07:31 12/05/17 07:31 Intake & Output 12/04/17 12/05/17 12/06/17 06:59 06:59 06:59 Intake Total 1745 Output Total 5 Balance 1740 Weight 90.7 kg General appearance: PRESENT: no acute distress, well-developed, well-nourished Head exam: PRESENT: atraumatic, normocephalic Eye exam: PRESENT: conjunctiva pink, EOMI, PERRLA. ABSENT: scleral icterus Ear exam: PRESENT: normal external ear exam Mouth exam: PRESENT: moist, tongue midline Neck exam: ABSENT: carotid bruit, JVD, lymphadenopathy, thyromegaly Respiratory exam: PRESENT: clear to auscultation yovanny, crackles - Right lower lobe., prolonged expiratory phas, symmetrical. ABSENT: rales, rhonchi, wheezes Cardiovascular exam: PRESENT: RRR. ABSENT: diastolic murmur, rubs, systolic murmur Pulses: PRESENT: normal dorsalis pedis pul Vascular exam: PRESENT: normal capillary refill GI/Abdominal exam: PRESENT: normal bowel sounds, soft. ABSENT: distended, guarding, mass, organolmegaly, rebound, tenderness Rectal exam: PRESENT: deferred Extremities exam: PRESENT: full ROM. ABSENT: calf tenderness, clubbing, pedal edema Neurological exam: PRESENT: alert, awake, oriented to person, oriented to place , oriented to time, oriented to situation, CN II-XII grossly intact. ABSENT: motor sensory deficit Psychiatric exam: PRESENT: appropriate affect, normal mood. ABSENT: homicidal ideation, suicidal ideation Skin exam: PRESENT: dry, intact, warm. ABSENT: cyanosis, rash Results Laboratory Results: 12/05/17 06:33 12/05/17 06:33 12/04/17 12/04/17 12/04/17 11:54 19:20 19:20 WBC 11.8 H RBC 3.98 Hgb 13.0 Hct 39.2 MCV 99 H MCH 32.8 MCHC 33.3 RDW 14.2 H Plt Count 210 Seg Neutrophils % 88.5 H Lymphocytes % 7.8 L Monocytes % 2.4 L Eosinophils % 0.2 Basophils % 1.1 Absolute Neutrophils 10.5 H Absolute Lymphocytes 0.9 Absolute Monocytes 0.3 Absolute Eosinophils 0.0 Absolute Basophils 0.1 Carbonic Acid HCO3/H2CO3 Ratio ABG pH ABG pCO2 ABG pO2 ABG HCO3 ABG O2 Saturation ABG Base Excess FiO2 Sodium 140.0 Potassium 4.4 5.1 H Chloride 103 Carbon Dioxide 26 Anion Gap 11 BUN 19 Creatinine 0.74 Est GFR ( Amer) > 60 Est GFR (Non-Af Amer) > 60 Glucose 311 H Calcium 9.5 Magnesium Total Bilirubin 0.4 AST 32 ALT 36 Alkaline Phosphatase 76 Total Protein 6.6 Albumin 3.9 12/04/17 12/05/17 12/05/17 23:15 06:33 06:33 WBC 11.9 H RBC 3.70 L Hgb 12.1 Hct 35.8 L MCV 97 MCH 32.8 MCHC 33.8 RDW 13.9 Plt Count 186 Seg Neutrophils % Lymphocytes % Monocytes % Eosinophils % Basophils % Absolute Neutrophils Absolute Lymphocytes Absolute Monocytes Absolute Eosinophils Absolute Basophils Carbonic Acid 1.55 H HCO3/H2CO3 Ratio 18:1 ABG pH 7.37 ABG pCO2 51.4 H ABG pO2 71.6 L ABG HCO3 29.2 H ABG O2 Saturation 93.8 L ABG Base Excess 3.1 FiO2 24% Sodium 140.0 Potassium 4.2 Chloride 103 Carbon Dioxide 27 Anion Gap 10 BUN 19 Creatinine 0.64 Est GFR ( Amer) > 60 Est GFR (Non-Af Amer) > 60 Glucose 138 H Calcium 9.4 Magnesium 1.8 Total Bilirubin AST ALT Alkaline Phosphatase Total Protein Albumin Impressions: Chest X-Ray 11/27/17 10:21 IMPRESSION: 1. Interval placement of Right Gaujrq-B-Bxrp catheter since the prior study dated 10/21/2016. 2. No acute radiographic finding in the chest. Chest/Abdomen CTA 12/04/17 17:48 IMPRESSION:No evidence of pulmonary embolus Linear atelectasis in the lung bases Small amount of stranding around the gallbladder with some indistinctness of the wall. Findings may reflect cholecystitis. Consider further evaluation with ultrasound if indicated Assessment & Plan - Diagnosis (1) Acute respiratory failure with hypoxia Is this a current diagnosis for this admission?: Yes Plan: Likely due to underlying COPD caused by chronic heavy smoking. ABG from admission shows mild hypoxia and hypercarbia. CTA negative for PE. Currently saturating 95-97% on room air. Patient advised on quitting smoking. (2) COPD (chronic obstructive pulmonary disease) with chronic bronchitis Is this a current diagnosis for this admission?: Yes Plan: Due to chronic heavy smoking. Started on azithromycin. Started on LABA/CELI and KIYA/ESTHELA PRN (DuoNeb). Short course of steroids. Outpatient follow-up with pulmonology for PFT. Advised on quitting smoking. (3) Depression Is this a current diagnosis for this admission?: No Plan: Restart home meds. Denies any suicidal or homicidal ideation. Outpatient psychiatry follow-up (4) Neuropathy Is this a current diagnosis for this admission?: No Plan: Likely due to underlying diabetes and chemotherapy. Restart home meds. (5) Ovarian cancer Is this a current diagnosis for this admission?: No Plan: Status post surgery and chemotherapy. Outpatient oncology follow-up. She has established oncology care as outpatient. (6) HTN (hypertension) Qualifiers: Hypertension type: essential hypertension Qualified Code(s): I10 - Essential (primary) hypertension Is this a current diagnosis for this admission?: No Plan: Start home meds. Monitor vitals. Adjust meds as needed. (7) Diabetes Qualifiers: Diabetes mellitus type: type 2 Diabetes mellitus assisted insulin use: with assisted use Diabetes mellitus complication status: with neurologic complications Diabetes mellitus complication detail: with polyneuropathy Qualified Code(s): E11.42 - Type 2 diabetes mellitus with diabetic polyneuropathy; Z79.4 - long term care pharmacist (current) use of insulin; Z79.4 - long term care pharmacist ( current) use of insulin; Z79.4 - [facility] (current) use of insulin; Z79.4 - [facility] (current) use of insulin Is this a current diagnosis for this admission?: No Plan: A1c 6.6. Accu-Chek, long-acting insulin, sliding scale, diabetic diet. Hold metformin. (8) Obesity (BMI 30.0-34.9) Is this a current diagnosis for this admission?: No Plan: Counseled on diet and lifestyle modification. (9) BLESSING (obstructive sleep apnea) Is this a current diagnosis for this admission?: No Plan: Nocturnal CPAP. Follow-up with PCP for possible nocturnal polysomnography referral. (10) GERD (gastroesophageal reflux disease) Is this a current diagnosis for this admission?: No Plan: Restart home meds. Outpatient GI follow-up.
[2017-12-05] MEDS ORDERED: AMLODIPINE BESYLATE 10 MG TABLET PO SCH ×2 (10:00)
[2017-12-05] MEDS ORDERED: (PENDING PHARMACY ID) (Losartan/Hydrochlorothiazide [Hyzaar 100-25 Tablet] 1 TAB) PO SCH (10:00)
[2017-12-05] MEDS: PREGABALIN 75 MG CAPSULE PO SCH ×3 (10:19→17:39)
[2017-12-05] MEDS: HYDROCODONE/ACETAMINOPHEN 5-325 MG TABLET PO PRN ×2 (10:19→19:38)
[2017-12-05] MEDS: DOCUSATE SODIUM 100 MG CAPSULE PO SCH ×2 (10:19→17:39)
[2017-12-05] MEDS: SERTRALINE HCL 50 MG TABLET PO SCH (10:19)
[2017-12-05] MEDS: HYDROCHLOROTHIAZIDE 25 MG TABLET PO SCH (10:19)
[2017-12-05] MEDS: PREDNISONE 20 MG TABLET PO SCH (10:20)
[2017-12-05] MEDS: GABAPENTIN 300 MG CAPSULE PO SCH (10:20)
[2017-12-05] MEDS: SALMETEROL XINAFOATE DISKUS 50 MCG/1 DOSE 28 DOSE IH SCH ×2 (10:55→21:56)
[2017-12-05] MEDS: TIOTROPIUM BROMIDE DPI 5 CAP/KIT (18 MCG/CAP) IH SCH (10:55)
[2017-12-05] MEDS: INSULIN LISPRO 100 UNIT/ML 3 ML VIAL SUBCUT PRN ×3 (12:13→23:49)
[2017-12-05] MEDS: OXYCODONE-ACETAMINOPHEN 5-325 MG TABLET PO PRN ×2 (15:30→22:03)
[2017-12-05] MEDS: INSULIN DETEMIR 100 UNIT/ML 3 ML PEN SUBCUT SCH (21:57)
[2017-12-06] MEDS: HYDROCODONE/ACETAMINOPHEN 5-325 MG TABLET PO PRN (04:09)
[2017-12-06] MEDS: LANSOPRAZOLE 15 MG TAB.RAP.DR PO SCH (05:18)
[2017-12-06] MEDS: HEPARIN SOD (PORCINE) 5,000 UNIT/ML 1 ML SYRINGE SUBCUT SCH (05:18)
[2017-12-06 06:12] LABS: ABSOLUTE BASOPHILS # (AUTO) 0.1 10^3/uL (0.0-0.2); ABSOLUTE EOSINOPHILS # (AUTO) 0.1 10^3/uL (0.0-0.6); ABSOLUTE LYMPHOCYTES (AUTO) 3.1 10^3/uL (0.5-4.7); ABSOLUTE NEUT (AUTO) 5.7 10^3/uL (1.7-8.2); BASOPHILS % (AUTO) 0.7 % (0-2); EOSINOPHILS % (AUTO) 1.4 % (0-6); HEMATOCRIT 36.3 % (36.0-47.0); HEMOGLOBIN 12.4 g/dL (12.0-15.5); LYMPHOCYTES % (AUTO) 30.8 % (13-45); MEAN CORPUSCULAR HGB CONC 34.1 g/dL (32.0-36.0); MEAN CORPUSCULAR VOLUME 97 fl (80-97); MONOCYTES % (AUTO) 10.2 % (3-13); PLATELET COUNT 204 10^3/uL (150-450); RED BLOOD COUNT 3.75 10^6/uL (3.72-5.28); RED CELL DISTRIBUTION WIDTH 14.2 % (11.5-14.0); SEGMENTED NEUTROPHILS % (AUTO) 56.9 % (42-78); TOTAL CELLS COUNTED % (AUTO) 100 %
[2017-12-06 06:37] LABS: ALANINE AMINOTRANSFERASE 26 U/L (9-52); ALBUMIN 3.9 g/dL (3.5-5.0); ALKALINE PHOSPHATASE 89 U/L (38-126); ANION GAP 9 (5-19); ASPARTATE AMINO TRANSFERASE 20 U/L (14-36); BILIRUBIN,DIRECT 0.2 mg/dL (0.0-0.4); BILIRUBIN,TOTAL 0.4 mg/dL (0.2-1.3); BLOOD UREA NITROGEN 21 mg/dL (7-20); CALCIUM 9.4 mg/dL (8.4-10.2); CARBON DIOXIDE 32 mmol/L (22-30); CHLORIDE 100 mmol/L (98-107); GLUCOSE 164 mg/dL (75-110); POTASSIUM 4.2 mmol/L (3.6-5.0); SODIUM 140.7 mmol/L (137-145); TOTAL PROTEIN 6.6 g/dL (6.3-8.2)
[2017-12-06] MEDS: INSULIN LISPRO 100 UNIT/ML 3 ML VIAL SUBCUT PRN (07:52)
--- NOTE | 2017-12-06 09:12 | PDOC DISCHARGE SUMMARY ---
General - Admit/Disc Date/PCP Admission Date/Primary Care Provider: 12/04/17 18:35 MO HERZOG PA-C Discharge Date: 12/06/17 - Discharge Diagnosis (1) Acute respiratory failure with hypoxia Is this a current diagnosis for this admission?: Yes (2) COPD (chronic obstructive pulmonary disease) with chronic bronchitis Is this a current diagnosis for this admission?: Yes (3) Depression Is this a current diagnosis for this admission?: No (4) Neuropathy Is this a current diagnosis for this admission?: No (5) Ovarian cancer Is this a current diagnosis for this admission?: No (6) HTN (hypertension) Is this a current diagnosis for this admission?: No (7) Diabetes Is this a current diagnosis for this admission?: No (8) Obesity (BMI 30.0-34.9) Is this a current diagnosis for this admission?: No (9) BLESSING (obstructive sleep apnea) Is this a current diagnosis for this admission?: No (10) GERD (gastroesophageal reflux disease) Is this a current diagnosis for this admission?: No - Additional Information Discharge Diet: As Tolerated Discharge Activity: Activity As Tolerated, Balance Activity w/Rest, No Lifting Over 10 Pounds, No Lifting/Push/Pulling Prescriptions: Azithromycin [Zithromax 250 mg Tablet] 250 mg PO DAILY 3 Days #3 tablet Prednisone [Deltasone 20 mg Tablet] 40 mg PO DAILY 2 Days #2 tablet Salmeterol Xinafoate [Serevent Diskus 50 Mcg/Dose 28 Dose/Diskus] 50 mcg IH Q12 2 Days #2 disk Home Medications: Amlodipine Besylate [Norvasc 10 mg Tablet] 10 mg PO DAILY 12/05/17 Atorvastatin Calcium [Lipitor 40 mg Tablet] 40 mg PO QPM 12/05/17 Bupropion HCl [Wellbutrin Xl] 150 mg PO QAM 12/05/17 Celecoxib [Celebrex 100 mg Capsule] 100 mg PO BIDP PRN 12/05/17 Losartan/Hydrochlorothiazide [Losartan-Hctz 100-25 mg Tab] 1 each PO DAILY 12/05 Metformin HCl [Glucophage] 1,000 mg PO BID 12/05/17 Omeprazole 20 mg PO DAILY 12/05/17 Pregabalin [Lyrica 100 mg Capsule] 100 mg PO Q8 12/05/17 Sertraline HCl [Zoloft] 200 mg PO DAILY 12/05/17 Tramadol HCl [Ultram 50 mg Tablet] 50 mg PO Q8HP PRN 12/05/17 Azithromycin [Zithromax 250 mg Tablet] 250 mg PO DAILY 3 Days #3 tablet Prednisone [Deltasone 20 mg Tablet] 40 mg PO DAILY 2 Days #2 tablet 12/06/17 Salmeterol Xinafoate [Serevent Diskus 50 Mcg/Dose 28 Dose/Diskus] 50 mcg IH Q12 2 Days #2 disk 12/06/17 History of Present Illness Patient complains of: SOB History of Present Illness: HELDER SOLIZ is a 67 year old female past medical history of ovarian cancer status surgery and chemotherapy 6 rounds of chemotherapy. Last chemotherapy 09/16, hypertension, diabetes, obstructive sleep apnea, neuropathy, and tobacco abuse. Patient was admitted for an ambulatory surgery for right carpal tunnel syndrome. Post surgery she developed acute shortness of breath saturating 80% on room air. Hospitalist was consulted for overnight observation. On my encounter patient is sitting in bed with supplemental oxygen and not in any acute distress. She is very pleasant and cooperative with physical examination and history. She stated that she was doing fine before surgery but after surgery she developed acute shortness of breath which has improved after treatment with DuoNeb. Presently has has mild shortness of breath and productive nonbloody cough. Denies denies any recent long distance travel, immobilization or any surgery prior to current surgery. She is also denying any chest pain, fever, chills, nausea, vomiting, diarrhea, constipation or any urinary symptoms. Hospital Course Hospital Course: (1) Acute respiratory failure with hypoxia Improved. Likely due to underlying COPD caused by chronic heavy smoking. ABG from admission shows mild hypoxia and hypercarbia. CTA negative for PE. Currently saturating 95-97% on room air. Patient advised on quitting smoking. (2) COPD (chronic obstructive pulmonary disease) with chronic bronchitis Due to chronic heavy smoking. Started on azithromycin. Started on LABA/CELI and KIYA/ESTHELA PRN (DuoNeb). Short course of steroids. Outpatient follow-up with pulmonology for PFT. Advised on quitting smoking. (3) Depression Restart home meds. Denies any suicidal or homicidal ideation. Outpatient psychiatry follow-up (4) Neuropathy Likely due to underlying diabetes and chemotherapy. Restart home meds. (5) Ovarian cancer Status post surgery and chemotherapy. Outpatient oncology follow-up. She has established oncology care as outpatient. (6) HTN (hypertension) Start home meds. Monitor vitals. Adjust meds as needed. (7) Diabetes A1c 6.6. Accu-Chek, long-acting insulin, sliding scale, diabetic diet. Hold metformin. (8) Obesity (BMI 30.0-34.9) Counseled on diet and lifestyle modification. (9) BLESSING (obstructive sleep apnea) Nocturnal CPAP. Follow-up with PCP for possible nocturnal polysomnography referral. (10) GERD (gastroesophageal reflux disease) Restart home meds. Outpatient GI follow-up. Physical Exam Vital Signs: Temp Pulse Resp BP Pulse Ox 97.9 F 60 16 145/74 H 94 12/06/17 07:43 12/06/17 08:14 12/06/17 07:43 12/06/17 07:43 12/06/17 07:43 Intake & Output 12/05/17 12/06/17 12/07/17 06:59 06:59 06:59 Intake Total 1745 1146 Output Total 5 Balance 1740 1146 Weight 90.7 kg 91.2 kg General appearance: PRESENT: no acute distress, well-developed, well-nourished Head exam: PRESENT: atraumatic, normocephalic Eye exam: PRESENT: conjunctiva pink, EOMI, PERRLA. ABSENT: scleral icterus Ear exam: PRESENT: normal external ear exam Mouth exam: PRESENT: moist, tongue midline Neck exam: ABSENT: carotid bruit, JVD, lymphadenopathy, thyromegaly Respiratory exam: PRESENT: clear to auscultation yovanny. ABSENT: rales, rhonchi, wheezes Cardiovascular exam: PRESENT: RRR. ABSENT: diastolic murmur, rubs, systolic murmur Pulses: PRESENT: normal dorsalis pedis pul Vascular exam: PRESENT: normal capillary refill GI/Abdominal exam: PRESENT: normal bowel sounds, soft. ABSENT: distended, guarding, mass, organolmegaly, rebound, tenderness Rectal exam: PRESENT: deferred Extremities exam: PRESENT: full ROM. ABSENT: calf tenderness, clubbing, pedal edema Neurological exam: PRESENT: alert, awake, oriented to person, oriented to place , oriented to time, oriented to situation, CN II-XII grossly intact. ABSENT: motor sensory deficit Psychiatric exam: PRESENT: appropriate affect, normal mood. ABSENT: homicidal ideation, suicidal ideation Skin exam: PRESENT: dry, intact, warm. ABSENT: cyanosis, rash Results Laboratory Results: 12/06/17 05:43 12/06/17 05:43 12/06/17 12/06/17 05:43 05:43 WBC 10.0 RBC 3.75 Hgb 12.4 Hct 36.3 MCV 97 MCH 33.0 MCHC 34.1 RDW 14.2 H Plt Count 204 Seg Neutrophils % 56.9 Lymphocytes % 30.8 Monocytes % 10.2 Eosinophils % 1.4 Basophils % 0.7 Absolute Neutrophils 5.7 Absolute Lymphocytes 3.1 Absolute Monocytes 1.0 Absolute Eosinophils 0.1 Absolute Basophils 0.1 Sodium 140.7 Potassium 4.2 Chloride 100 Carbon Dioxide 32 H Anion Gap 9 BUN 21 H Creatinine 0.68 Est GFR ( Amer) > 60 Est GFR (Non-Af Amer) > 60 Glucose 164 H Calcium 9.4 Total Bilirubin 0.4 AST 20 ALT 26 Alkaline Phosphatase 89 Total Protein 6.6 Albumin 3.9 Impressions: Chest X-Ray 11/27/17 10:21 IMPRESSION: 1. Interval placement of Right Jcalhk-M-Vjcx catheter since the prior study dated 10/21/2016. 2. No acute radiographic finding in the chest. Chest/Abdomen CTA 12/04/17 17:48 IMPRESSION:No evidence of pulmonary embolus Linear atelectasis in the lung bases Small amount of stranding around the gallbladder with some indistinctness of the wall. Findings may reflect cholecystitis. Consider further evaluation with ultrasound if indicated Qualifiers - * PATIENT BEING DISCHARGED WITH ANY OF THE FOLLOWING DIAGNOSIS: No
[2017-12-06] MEDS: SALMETEROL XINAFOATE DISKUS 50 MCG/1 DOSE 28 DOSE IH SCH (09:45)
[2017-12-06] MEDS: TIOTROPIUM BROMIDE DPI 5 CAP/KIT (18 MCG/CAP) IH SCH (09:45)
[2017-12-06] MEDS: PREDNISONE 20 MG TABLET PO SCH (09:46)
[2017-12-06] MEDS: SERTRALINE HCL 50 MG TABLET PO SCH (09:47)
[2017-12-06] MEDS: HYDROCHLOROTHIAZIDE 25 MG TABLET PO SCH (09:47)
[2017-12-06] MEDS: PREGABALIN 75 MG CAPSULE PO SCH (09:47)
[2017-12-06] MEDS: GABAPENTIN 300 MG CAPSULE PO SCH (09:47)
[2017-12-06] MEDS: DOCUSATE SODIUM 100 MG CAPSULE PO SCH (09:48)
[2017-12-06] MEDS ORDERED: AZITHROMYCIN 250 MG TABLET PO SCH (10:00)
[2017-12-06] MEDS ORDERED: AMLODIPINE BESYLATE 10 MG TABLET PO SCH (10:00)
[2017-12-06 10:57] VITALS: BP 127/92
== END 2017-12-06 11:20 | disposition home or self-care (01) ==
LOC: OROUT 10:55 → 5 18:09 → OROUT 18:33 → 5 18:35
PROVIDERS: ADMIT Internal Medicine; ATTEND Internal Medicine
PROC: 0HBQXZX Excision of Finger Nail, External Approach, Diagnostic (ICD-10-PCS; 2017-12-04)
PROC: 01N54ZZ Release Median Nerve, Percutaneous Endoscopic Approach (ICD-10-PCS; principal; 2017-12-04 12:45)
DX: J96.01 Acute respiratory failure with hypoxia (principal); J42 Unspecified chronic bronchitis; F32.9 Major depressive disorder, single episode, unspecified; C56.9 Malignant neoplasm of unspecified ovary; I10 Essential (primary) hypertension; E11.42 Type 2 diabetes mellitus with diabetic polyneuropathy; E66.9 Obesity, unspecified; G47.33 Obstructive sleep apnea (adult) (pediatric); K21.9 Gastro-esophageal reflux disease without esophagitis; G56.01 Carpal tunnel syndrome, right upper limb; L60.8 Other nail disorders; F17.210 Nicotine dependence, cigarettes, uncomplicated; M13.842 Other specified arthritis, left hand; M13.841 Other specified arthritis, right hand; M06.9 Rheumatoid arthritis, unspecified; Z68.34 Body mass index [BMI] 34.0-34.9, adult; Z92.21 Personal history of antineoplastic chemotherapy; Z86.19 Personal history of other infectious and parasitic diseases; Z79.4 Long term (current) use of insulin; Z95.828 Presence of other vascular implants and grafts
CPT/HCPCS: 93005; 36415 ×4; 87070; 87205; 87206; 87116; 87101; 82962 ×3; 82803; 83735; 84132; 85025 ×2; 85027 ×2; 80048 ×2; 80053 ×2; 81001; 83036; 87015; 88305 ×2; 88312 ×2; 71046; 71275; 93010; 94660 ×2; 97162; 29848; 11755; A9270 ×28; J2250; J3490 ×7; J1644 ×3; J1100; J3010; J2270; J2370; J2405; J2704; J0690; J0131; 01810; 87077; G0378; G0379; J1815; J7512; J7620

== ENCOUNTER 2018-02-23 06:44 | Day surgery (SDC) | payer MEDICARE, MEDICAID ==
[2018-02-17 10:13] LABS: APPEARANCE,URINE SLIGHTLY-CLOUDY; BILIRUBIN,URINE NEGATIVE (NEGATIVE); COLOR,URINE YELLOW; GLUCOSE, URINE NEGATIVE (NEGATIVE); KETONES,URINE NEGATIVE (NEGATIVE); LEUKOCYTE ESTERASE,URINE NEGATIVE (NEGATIVE); NITRITE,URINE NEGATIVE (NEGATIVE); PROTEIN,URINE NEGATIVE (NEGATIVE); URINE SPECIFIC GRAVITY 1.017; UROBILINOGEN,URINE NEGATIVE mg/dL (<2.0)
[2018-02-17 10:15] LABS: HEMATOCRIT 41.5 % (36.0-47.0); MEAN CORPUSCULAR HGB CONC 33.7 g/dL (32.0-36.0); MEAN CORPUSCULAR VOLUME 92 fl (80-97); PLATELET COUNT 237 10^3/uL (150-450); RED BLOOD COUNT 4.52 10^6/uL (3.72-5.28); RED CELL DISTRIBUTION WIDTH 13.9 % (11.5-14.0); WHITE BLOOD COUNT 8.1 10^3/uL (4.0-10.5)
[2018-02-17 10:29] LABS: ANION GAP 13 (5-19); BLOOD UREA NITROGEN 22 mg/dL (7-20); CALCIUM 10.3 mg/dL (8.4-10.2); CARBON DIOXIDE 29 mmol/L (22-30); CHLORIDE 97 mmol/L (98-107); GLUCOSE 144 mg/dL (75-110); POTASSIUM 4.5 mmol/L (3.6-5.0); SODIUM 139.3 mmol/L (137-145)
--- NOTE | 2018-02-17 10:50 | RADIOLOGY REPORT (SQ) ---
EXAM DESCRIPTION: CHEST PA/LATERAL COMPLETED DATE/TIME: 02/17/2018 10:18 am REASON FOR STUDY: PRE-OP COMPARISON: 2016. TECHNICAL DOCUMENTATION: JOB ID: [id number] Reading location - IP/workstation name: [email or web address]
--- NOTE | 2018-02-17 17:23 | EKG REPORT ---
SEVERITY:- ABNORMAL ECG - SINUS RHYTHM MULTIPLE VENTRICULAR PREMATURE COMPLEXES LEFT ANTERIOR FASCICULAR BLOCK : Confirmed by: Zulay Tyler MD 17-Feb-2018 17:23:09
[~2018-02-23 06:44] MED LIST changes: -BUPIVACAINE HCL 0.5 % INJ/PF 30 ML SDV ONE; -CEFAZOLIN 2 GM/D5W RTU 2 GM/50 ML RTUPB IV ONE; -CEFAZOLIN 2 GM/D5W RTU 2 GM/50 ML RTUPB IV PRN; +CEFAZOLIN SODIUM 2 GM in DEXTROSE 5%-WATER 100 ML IV PRN; -CEFAZOLIN SODIUM 2 GM in DEXTROSE 5%-WATER 100 ML IV SCH; -LACTATED RINGERS 1000 ML IV PRN; +LIDOCAINE 0.5% INJ-PF (5 MG/ML) 50 ML SDV SUBCUT PRN; -LIDOCAINE 1% INJ-PF (10 MG/ML) 30 ML SDV ONE; +NORMAL SALINE 1000 ML (RENAL PATIENTS) IV PRN
[2018-02-23] MEDS ORDERED: FAMOTIDINE INJ/PF 20 MG/2 ML SDV IV ONE (07:40)
[2018-02-23] MEDS ORDERED: METOCLOPRAMIDE HCL INJ/PF 10 MG/2 ML SDV ONE (07:40)
[2018-02-23] MEDS ORDERED: IPRATROPIUM/ALBUTEROL 0.5-2.5 MG/3 ML AMPUL NEB ONE (07:45)
[2018-02-23] MEDS ORDERED: MORPHINE SULFATE 10 MG/ML INJ IV PRN (07:59)
[2018-02-23] MEDS ORDERED: DIPHENHYDRAMINE HCL 50 MG/ML VIAL IV PRN (07:59)
[2018-02-23] MEDS ORDERED: OXYCODONE-ACETAMINOPHEN 5-325 MG TABLET PO PRN ×2 (07:59)
[2018-02-23] MEDS ORDERED: PROMETHAZINE HCL INJ 25 MG/1 ML VIAL IV PRN ×2 (07:59)
[2018-02-23] MEDS ORDERED: FENTANYL CITRATE INJ/PF 100 MCG/2 ML AMPUL IV PRN ×3 (07:59)
[2018-02-23] MEDS ORDERED: MEPERIDINE HCL/PF INJ 25 MG/1 ML DISP.SYRIN IV PRN (07:59)
[2018-02-23] MEDS ORDERED: LIDOCAINE 2% INJ-PF (20 MG/ML) 10 ML AMPUL ONE (08:15)
[2018-02-23] MEDS ORDERED: FENTANYL CITRATE INJ/PF 100 MCG/2 ML AMPUL ONE (08:16)
[2018-02-23] MEDS ORDERED: PROPOFOL INJ 200 MG/20 ML VIAL IV ONE (08:16)
[2018-02-23] MEDS ORDERED: EPHEDRINE SULFATE INJ 50 MG/1 ML AMPULE ONE (08:16)
[2018-02-23] MEDS ORDERED: MIDAZOLAM 2 MG/2 ML INJ ONE (08:16)
[2018-02-23] MEDS ORDERED: ONDANSETRON HCL INJ/PF 4 MG/2 ML SDV ONE (08:17)
[2018-02-23] MEDS ORDERED: LIDOCAINE 1% INJ-PF (10 MG/ML) 30 ML SDV ONE (08:19)
[2018-02-23] MEDS ORDERED: HYDROCODONE/ACETAMINOPHEN 5-325 MG TABLET PO PRN (09:09)
[2018-02-23] MEDS ORDERED: ONDANSETRON HCL INJ/PF 4 MG/2 ML SDV IV PRN (09:09)
--- NOTE | 2018-02-23 09:14 | Operative Report ---
Operative Report DATE OF SURGERY: 02/23/18 PREOPERATIVE DIAGNOSIS: Left Carpal Tunnel Syndrome POSTOPERATIVE DIAGNOSIS: Left Carpal Tunnel Syndrome OPERATION: Left Endoscopic Carpal Tunnel Release SURGEON: RENZO BROWN ANESTHESIA: LMAC COMPLICATIONS: None ESTIMATED BLOOD LOSS: Minimal PROCEDURE: Indication for above procedure: 67-year-old female with history of bilateral carpal tunnel syndrome. She underwent successful right carpal tunnel release in the past now has similar symptoms on the left. We discussed treatment options including operative versus nonoperative intervention. Also discussed risk and benefits patient verbalized understanding consented for the procedure. Procedure In Detail: Patient was seen and evaluated in the preoperative holding area. The LEFT upper extremity was initialized and marked. Patient received Ancef IV for bacterial prophylaxis. Patient was taken back to the operative room where transferred operative table. Patient was then placed under MAC anesthesia. Once adequately anesthetized, a nonsterile tourniquet was placed on the upper extremity. A surgical team debriefing was performed ensuring all instrumentation was available, the surgical procedure was discussed with possible concerns reviewed. Skin was prepped with alcohol and 10cc of 1% lidocaine without epinephrine was injected locally and w/in carpal canal. The upper extremity was prepped with chlorhexidine and alcohol and draped in a sterile fashion. A timeout was done identifying correct patient, procedure and extremity everyone in attendance agree with this and verbalized no concerns.The extremity was then exsanguinated the tourniquet was inflated to 250 mmHg. A transverse skin incision was made just proximal to the wrist flexion crease ulnar to the palmaris longus. Blunt dissection was performed down to the palmaris longus tendon which was retracted radially. Deep to the palmaris longus tendon was the volar carpal ligament this was incised identifying the median nerve deep. With the use of a Odin elevator any soft tissue/synovium was freed from the undersurface of the transverse carpal ligament. The hook of hamate was identified ulnarly. The ConMed cannulas were then introduced beginning with #1 progressing to a #3 gently dilating the carpal canal. I then introduced the scope within the cannula and identified transverse carpal ligament ensuring the median nerve was not visualized within the cannula. I triangulated distally with a 25-gauge needle identifying the distal aspect of the transverse carpal ligament, to ensure protection of the superficial palmar arch. The arthroscopic knife was used to incise the transverse carpal ligament under direct visualization with the arthroscopic camera. Any excess transverse fibers that remained after the first past were carefully released with a repeat pass. The median nerve was then directly visualized radially without disruption. Once this was completed I placed the #3 dilator and assured I got complete release of the transverse carpal ligament without residual compression. The median nerve was directly visualized and free of any overlying compression. I then turned my attention to release of the volar antebrachial fascia proximally. Once again a Odin was used to open the wound and I proceeded with cannula #1 to #3. The arthroscope was introduced into the cannula and under direct visualization the volar antebrachial fascia was released. Once this was complete I copiusly irrigated the wound with normal saline. The skin incision was closed with 4-0 Monocryl subcutaneous and a running subcuticular 4-0 Monocryl. This was reinforced with Dermabond and Steri-Strips. Sterile, 4 x 4's and a Kody bandage was placed loosely. Sponge counts, instrument counts and needle counts were correct. The was no intraoperative complications patient tolerated the procedure well and was stable to PACU.
--- NOTE | 2018-02-23 09:14 | Discharge Summary ---
Discharge Summary (SDC) - Discharge Final Diagnosis: Left Carpal Tunnel Syndrome Date of Surgery: 02/23/18 Discharge Date: 02/23/18 Condition: Good Treatment or Instructions: Schedule Follow Up w/ Dr. Bassem Matthews @ [facility] for [facility] to be seen in 10-14 days or as scheduled [place]: [place]: [place]: May remove dressing on postop day #3, keep incision covered and dry. Ice and elevate May begin finger range of motion attempting to make full fist. Stool softener of choice when on pain medication. USE OF [id number] IBUPROFEN: Ibuprofen (Advil, Nuprin, Medipren, Motrin IB) is a medication for fever and pain control. In addition, it has anti- inflammatory effects which may be beneficial, especially in the treatment of injuries. It's best to take ibuprofen with food. Persons with ulcer disease or allergy to aspirin should notify their physician of this before taking ibuprofen. Ibuprofen can be given every four to six hours, for a total of four doses daily. Age Pain or fever dose Antiinflammatory dose 6-8 yr 200 mg (1 tab) 200 mg (1 tab) 9-11 yr 200 mg (1 tab) 200-400 mg (1-2 tab) 11-14 yr 200-400 mg (1-2 tab) 400 mg (2 tab) 15-adult 400 mg (2 tab) 600 mg (3 tab) ORAL NARCOTIC MEDICATION: You have been given a prescription for pain control. This medication is a narcotic. It's best taken with food, as nausea can result if taken on an empty stomach. Don't operate machinery or drive within six hours of taking this medication. Do not combine this medicine with alcohol, or with any medication which can cause sedation (such as cold tablets or sleeping pills) unless you get permission from the physician. Narcotics tend to cause constipation. If possible, drink plenty of fluids and eat a diet high in fiber and fruits. Please be aware that prescription narcotics also have the potential for abuse. People become addicted to these medications because of the general sense of wellbeing that they induce. This feeling along with a significant reduction in tension, anxiety, and aggression provides a stimulating seductive quality to these drugs. Once your pain is under control, we encourage you to discard your unused narcotics. Prescriptions: Hydrocodone/Acetaminophen [Lillie 5-325 mg Tablet] 1 tab PO Q6 PRN #10 tablet PRN Reason: Referrals: MO HERZOG PA-C [Primary Care Provider] - Discharge Diet: As Tolerated Respiratory Treatments at Home: Deep Breathing/Coughing Report the Following to Your Physician Immediately: Fever over 101 Degrees, Unusual Bleeding, Redness, Swelling, Warmth, Increased Soreness
[2018-02-23 12:03] VITALS: BP 113/69
== END 2018-02-23 12:26 | disposition home or self-care (01) ==
LOC: OROUT 06:44
PROVIDERS: ATTEND Orthopaedic Surgery
DX: G56.02 Carpal tunnel syndrome, left upper limb (principal); Z79.84 Long term (current) use of oral hypoglycemic drugs; Z79.899 Other long term (current) drug therapy; Z79.51 Long term (current) use of inhaled steroids; E11.9 Type 2 diabetes mellitus without complications; I10 Essential (primary) hypertension; F17.210 Nicotine dependence, cigarettes, uncomplicated; Z85.43 Personal history of malignant neoplasm of ovary; G47.33 Obstructive sleep apnea (adult) (pediatric); J44.9 Chronic obstructive pulmonary disease, unspecified
CPT/HCPCS: 93005; 36415 ×2; 82962; 84132; 85027; 80048; 81001; 83036; 71046; 93010; 29848; J2250; J0690; J3490 ×2; J2765; J2704; S0028; A9270; 1810; J2405; J3010; J7620

== ENCOUNTER → 2018-05-18 | Outpatient (CLI) | payer MEDICARE, MEDICAID ==
--- NOTE | 2018-05-18 12:26 | RADIOLOGY REPORT (SQ) ---
EXAM DESCRIPTION: CT LUNG CANCER SCREENING COMPLETED DATE/TIME: 05/18/2018 11:17 am REASON FOR STUDY: Z87.891 PERSONAL HISTORY OF NICOTINE DEPENDENCE Z87.891 PERSONAL HISTORY OF NICOT INE DEPENDENCE Has the patient had a Chest CT scan within the past year? Yes. Was the patient offered tobacco cessation counseling? Yes. Was the patient engaged in shared decision making for this test? Yes. Does the patient have signs or symptoms of Lung Cancer? No. Is the patient a smoker? Yes. How many pack years? 30. How many years since quitting smoking? Current smoker. Patients age: 68. COMPARISON: Pulmonary CTA dated 12/04/2017. No prior low-dose screening chest CT. TECHNIQUE: Low Dose CT scan performed of the chest without intravenous contrast for purposes of scre ening for lung cancer. Images reviewed with lung, soft tissue and bone windows. Reconstructed coron al and sagittal MPR images reviewed. All images stored on PACS. All CT scanners at this facility use dose modulation, iterative reconstruction, and/or weight based d osing when appropriate to reduce radiation dose to as low as reasonably achievable (ALARA). [facility]: Dose Right [facility]: CareDose [facility]: Dose Right [facility]: Teradose 4D [facility]: [employer] RADIATION DOSE: CT Rad equipment meets quality standard of care and radiation dose reduction techniq ues were employed. CTDIvol: NaN mGy. DLP: 0 mGy-cm. mGy. . LIMITATIONS: No technical limitations. FINDINGS: LUNG NODULES: 4.6 mm nodule in the lateral right upper lobe (axial series 2, image 115). Heavily calcified 4.2 mm nodule in the posterior right lower lobe. REMAINING LUNGS AND PLEURA: No pleural effusions or calcifications. No pneumothorax. No scarrin g or interstitial changes. HILAR AND MEDIASTINAL STRUCTURES: No identified masses. No abnormal nodes. HEART AND VASCULAR STRUCTURES: No aortic aneurysm. No pericardial effusion. No cardiac devices. CORONARY ARTERY CALCIFICATIONS: Mild to moderate calcifications. UPPER ABDOMEN, THYROID, BONES, OTHER SOFT TISSUES: No significant findings. IMPRESSION: BENIGN FINDINGS IN THE LUNGS. NO OTHER CLINICALLY SIGNIFICANT/POTENTIALLY CLINICALLY SIGNIFICANT FINDINGS LUNGRADS: LUNGRADS: 2 BENIGN APPEARANCE OR BEHAVIOR. NODULES WITH A VERY LOW LIKELIHOOD OF BECOMING A CLINICALLY ACTIVE CANCER DUE TO SIZE OR LACK OF GROWTH. MODIFIER: NONE. RECOMMENDATION: Continue annual screening with LDCT in 12 months. COMMENT: CRITERIA: Solid nodule(s): < 6 mm; new < 4 mm. Part solid nodule(s): < 6 mm total diameter on baseline screening. Non solid nodule(s) (GGN): < 20 mm OR ? 20 and unchanged or slowly growing. Category 3 or 4 modules unchanged for ? 3 months. TECHNICAL DOCUMENTATION: JOB ID: [id number] Quality ID # [id number]: Final reports with documentation of one or more dose reduction techniques (e.g., Au tomated exposure control, adjustment of the mA and/or kV according to patient size, use of iterative reconstruction technique) 2010 [facility] Reading location - IP/workstation name: [email or web address]
== END ==
LOC: RAD 13:37
PROVIDERS: ATTEND Internal Medicine Pulmonary Disease
DX: Z12.2 Encounter for screening for malignant neoplasm of respiratory organs (principal); Z87.891 Personal history of nicotine dependence; R91.1 Solitary pulmonary nodule
CPT/HCPCS: G0297

== ENCOUNTER → 2018-06-29 | Outpatient (CLI) | payer MEDICARE, MEDICAID ==
--- NOTE | 2018-06-29 13:00 | RADIOLOGY REPORT (SQ) ---
EXAM DESCRIPTION: MRI HEAD COMBO COMPLETED DATE/TIME: 06/29/2018 11:13 am REASON FOR STUDY: OVARIAN CA (C56.2) C56.2 MALIGNANT NEOPLASM OF LEFT OVARY COMPARISON: CT brain 03/06/2014 CT chest 05/18/2018 TECHNIQUE: Multiplanar imaging includes noncontrasted T1, T2, FLAIR, diffusion with ADC map and post gadolinium contrast T1 sequences. Images stored on PACS. CONTRAST TYPE AND DOSE: 20 mL Dotarem. RENAL FUNCTION: Not indicated. ACR Type II contrast agent associated with few, if any, unconfounded cases of NSF LIMITATIONS: Mild motion artifact FINDINGS: ANATOMY: No anomalies. Normal vascular flow voids. Pituitary fossa normal. CSF SPACES: Normal in size and contour. No hemorrhage. CEREBRUM: Sulci and gyri normal in size and contour. Normal white matter signal on FLAIR imaging. No evidence of hemorrhage, mass, or extraaxial fluid collection. No abnormal enhancement post contrast. POSTERIOR FOSSA: No signal alteration. No hemorrhage. No edema, masses, or mass effect. Internal pau tory canals, cerebellopontine angles, mastoids normal. No enhancing lesions. No abnormal enhancement post contrast. DIFFUSION IMAGING: Negative for acute or subacute infarction. ORBITS: No masses. Globes normal. PARANASAL SINUSES: No fluid levels. Mucosa normal. OTHER: No other significant finding. IMPRESSION: NORMAL MRI OF THE BRAIN WITHOUT AND WITH INTRAVENOUS GADOLINIUM CONTRAST. EVIDENCE OF ACUTE STROKE: NO. TECHNICAL DOCUMENTATION: JOB ID: [id number] [employer]- All Rights Reserved Reading location - IP/workstation name: [email or web address]
== END ==
LOC: RAD 10:07
PROVIDERS: ATTEND Internal Medicine Hematology & Oncology
DX: C56.2 Malignant neoplasm of left ovary (principal)
CPT/HCPCS: 70553; A9576

== ENCOUNTER 2018-10-05 09:03 | Day surgery (SDC) | payer MEDICARE, MEDICAID ==
[~2018-10-05 09:03] MED LIST changes: -CEFAZOLIN SODIUM 2 GM in DEXTROSE 5%-WATER 100 ML IV PRN; +CHONDR SU A NA/HYALUR INTRAOC KIT (SURGICARE) ONE; +EPINEPHRINE INJ/PF 1 MG/1 ML AMPULE ONE; +KETOROLAC TROMETHAMINE 0.45% 4 DROP/0.4 ML DROPERETTE OS PRN; -LIDOCAINE 0.5% INJ-PF (5 MG/ML) 50 ML SDV SUBCUT PRN; -NORMAL SALINE 1000 ML (RENAL PATIENTS) IV PRN
[2018-10-05] MEDS ORDERED: MIDAZOLAM 2 MG/2 ML INJ ONE (09:46)
[2018-10-05] MEDS: CYCLOPENTOLATE 0.2%/PHENYLEPHRINE 1% OPH SOLN 2 ML OS PRN ×2 (10:15→10:25)
[2018-10-05] MEDS: TROPICAMIDE 1% OPH SOLN 3 ML OS PRN ×2 (10:15→10:25)
[2018-10-05] MEDS: BESIFLOXACIN HCL 0.6% OPH SUSP 5 ML BOTTLE OS PRN ×4 (10:15→11:26)
[2018-10-05] MEDS: TETRACAINE HCL 0.5% OPH SOLN 4 ML OS PRN ×3 (10:15→11:01)
[2018-10-05] MEDS: LIDOCAINE 4% INJ/PF (40 MG/ML) 5 ML AMPUL OS PRN ×2 (11:06)
[2018-10-05] MEDS: BUPIVACAINE HCL 0.75% INJ/PF (7.5 MG/1 ML) 10 ML SDV OS PRN ×2 (11:06)
[2018-10-05] MEDS: LIDOCAINE 1% INJ-PF (10 MG/ML) 30 ML SDV ONE ×2 (11:13)
[2018-10-05] MEDS: DORZOLAMIDE HCL 2%/TIMOLOL MALEAT 0.5% OPH SOLN 10 ML OS PRN ×2 (11:26)
--- NOTE | 2018-10-05 15:02 | Operative Report ---
Operative Report-[facility] Operative Report: DATE OF SURGERY: 2018 PREOPERATIVE DIAGNOSIS: CATARACT, LEFT EYE. POSTOPERATIVE DIAGNOSIS: CATARACT, LEFT EYE. PROCEDURE PERFORMED: PHACOEMULSIFICATION WITH POSTERIOR CHAMBER INTRAOCULAR LENS, LEFT EYE. Intraocular Lens Model : SN 60 WF 22.0 Total Phaco Time: 6.93 CDE SURGEON: MEHDI XIONG MD ANESTHESIA: TOPICAL WITH MAC. INDICATIONS FOR SURGERY: Difficultly driving at night PROCEDURE: The patient was brought to the Operating Room and placed on the operative table. Following tetracaine drops, topical anesthesia was administered. This consisted of instrument wipe pledgets soaked in a solution of 4% Xylocaine mixed with 0.75% Marcaine in a 1:2 ratio. A 2 x 1 cm pledget was placed in the superior fornix. A 1 x 1 cm pledget was placed in the inferior fornix. The eye was patched shut for 5 minutes. The patch was removed. The eye was sterilely prepped and draped in the usual manner. Lid speculum was placed in the eye. The pledgets were removed. 4-0 black silk sutures were placed around the superior and the inferior rectus muscles to be used as traction. A conjunctival peritomy was made at the 10 o'clock position. Hemostasis was obtained with bipolar cautery. A posterior limbal groove was created using a crescent knife and dissected anteriorly towards the cornea. A sharp point blade was used to create a paracentesis site at the 2 o'clock position. 0.2 cc non preserved Lidocaine was injected into the anterior chamber. A 2.4 mm keratome was used to enter the anterior chamber through the groove. Viscoelastic was injected into the anterior chamber. An anterior capsulotomy was performed using Utrata forceps in a capsulorrhexis fashion. Hydrodissection and hydrodelineation were performed. Phacoemulsification was performed in [id number] technique. Following this, the I/A unit was used to remove residual cortex. Viscoelastic was injected into the capsular bag. The Intraocular lens was placed in the capsular bag. The I/A unit was used to remove residual viscoelastic. The wound was seen to be watertight under high and low pressure, and no sutures were placed. The intraocular lens was well centered. The pressure was adjusted in the eye to normal pressure. The 4-0 black silk sutures and lid speculum were removed. The eye was shielded after Besivance and Cosopt drops were placed. The patient tolerated the procedure well and was sent to the Recovery Room in good condition.
--- NOTE | 2018-10-05 15:03 | PDOC DISCHARGE SUMMARY ---
Discharge Summary-[facility] Discharge Summary: DATE: 10/05/2018 FINAL DIAGNOSIS: CATARACT, LEFT EYE PROCEDURE: Cataract surgery with intraocular lens implant left eye HOSPITAL COURSE: The patient will be discharged to home. The patient is instructed to resume preoperative medications, take Tylenol as needed for discomfort, to keep the eye shielded, They should use the prescribed antibiotic, NSAID, and steroid at 3 PM and 8 PM, and to follow up in my office in 1 day.
== END 2018-10-05 12:03 | disposition home or self-care (01) ==
LOC: SC 09:03
PROVIDERS: ATTEND Ophthalmology
DX: H25.813 Combined forms of age-related cataract, bilateral (principal); H01.001 Unspecified blepharitis right upper eyelid; H01.004 Unspecified blepharitis left upper eyelid; D31.31 Benign neoplasm of right choroid; H04.123 Dry eye syndrome of bilateral lacrimal glands; E11.9 Type 2 diabetes mellitus without complications; I10 Essential (primary) hypertension; E78.00 Pure hypercholesterolemia, unspecified; F17.210 Nicotine dependence, cigarettes, uncomplicated; K21.9 Gastro-esophageal reflux disease without esophagitis; B18.2 Chronic viral hepatitis C; J44.9 Chronic obstructive pulmonary disease, unspecified; Z79.84 Long term (current) use of oral hypoglycemic drugs; Z79.82 Long term (current) use of aspirin; Z85.828 Personal history of other malignant neoplasm of skin; Z79.899 Other long term (current) drug therapy; Z79.51 Long term (current) use of inhaled steroids
CPT/HCPCS: 66984; 82962; 00142; J2250; J3490 ×5; A9270; J0171; 142; V2632

== ENCOUNTER → 2018-11-09 | Outpatient (CLI) | payer MEDICARE, MEDICAID ==
--- NOTE | 2018-11-09 13:54 | RADIOLOGY REPORT (SQ) ---
EXAM DESCRIPTION: CT CHEST WITHOUT COMPLETED DATE/TIME: 11/09/2018 9:38 am REASON FOR STUDY: SOLITARY PULMONARY NODULE (R91.1) R91.1 SOLITARY PULMONARY NODULE COMPARISON: CT of the chest with contrast from 12/04/2017 and 05/18/2018. TECHNIQUE: CT scan performed of the chest without intravenous contrast. Images reviewed with lung, soft tissue and bone windows. Reconstructed coronal and sagittal MPR images reviewed. All images st ored on PACS. All CT scanners at this facility use dose modulation, iterative reconstruction, and/or weight based d osing when appropriate to reduce radiation dose to as low as reasonably achievable (ALARA). [facility]: Dose Right [facility]: CareDose [facility]: Dose Right [facility]: Teradose 4D [facility]: Smart News[employer] RADIATION DOSE: CT Rad equipment meets quality standard of care and radiation dose reduction techniq ues were employed. CTDIvol: 16.9 mGy. DLP: 699 mGy-cm. mGy. LIMITATIONS: No technical limitations. FINDINGS: LUNGS AND PLEURA: The trachea and main bronchi are patent. There is no bronchiectasis or mucus plugging. The calcified 4.6 mm nodule in the right lower lobe (image 86 of series 4) is stable . Perhaps due to difference in technique (the prior CT was obtained at 1.25 mm axial slices) the non calcified, subpleural 4.6 mm nodule in the right upper lobe is inconspicuous on the 2.5 mm axial slic es. There is no new or enlarging pulmonary nodule. The linear parenchymal scar in the right lower l obe. There is no alveolar consolidation, pleural effusion or pneumothorax. HILAR AND MEDIASTINAL STRUCTURES: There are no enlarged mediastinal or hilar lymph nodes. HEART AND VASCULAR STRUCTURES: There is no aneurysmal dilatation of the thoracic aorta or evidence of an intramural hematoma. There is no cardiomegaly or pericardial effusion. There is mild atheroscle rotic calcification of the coronary arteries and mitral annulus. UPPER ABDOMEN: There is a 3.6 mm calculus within a left upper pole calyx. THYROID AND OTHER SOFT TISSUES: The right lobe of the thyroid gland is enlarged and heterogeneous and extends below the thoracic inlet. BONES: No acute finding. HARDWARE: None in the chest. OTHER: No other findings. IMPRESSION: Stable 4.6 mm nodule in the right lower lobe. Perhaps due to difference in technique (th e prior CT was obtained at 1.25 mm axial slices) the noncalcified, subpleural 4.6 mm nodule in the ri ght upper lobe is inconspicuous on the 2.5 mm axial slices. There is no new or enlarging pulmonary n odule. COMMENT: Considered continued annual CT lung cancer screening. TECHNICAL DOCUMENTATION: JOB ID: [id number] Quality ID # [id number]: Final reports with documentation of one or more dose reduction techniques (e.g., Au tomated exposure control, adjustment of the mA and/or kV according to patient size, use of iterative reconstruction technique) 2010 [employer]- All Rights Reserved Reading location - IP/workstation name: [email or web address]
== END ==
LOC: RAD 09:20
PROVIDERS: ATTEND Internal Medicine Critical Care Medicine
DX: R91.1 Solitary pulmonary nodule (principal)
CPT/HCPCS: 71250

== ENCOUNTER → 2019-03-07 | Outpatient (CLI) | payer MEDICARE, MEDICAID ==
--- NOTE | 2019-03-07 15:59 | RADIOLOGY REPORT (SQ) ---
EXAM DESCRIPTION: CT CHEST WITHOUT COMPLETED DATE/TIME: 03/07/2019 11:17 am REASON FOR STUDY: R91.1 SOLITARY PULMONARY NODULE R91.1 SOLITARY PULMONARY NODULE COMPARISON: CTs of the chest without contrast from 12/04/2017 and 11/09/2018. TECHNIQUE: CT scan performed of the chest without intravenous contrast. Images reviewed with lung, soft tissue and bone windows. Reconstructed coronal and sagittal MPR images reviewed. All images st ored on PACS. All CT scanners at this facility use dose modulation, iterative reconstruction, and/or weight based d osing when appropriate to reduce radiation dose to as low as reasonably achievable (ALARA). [facility]: Dose Right [facility]: CareDose [facility]: Dose Right [facility]: Teradose 4D [facility]: [employer] RADIATION DOSE: CT Rad equipment meets quality standard of care and radiation dose reduction techniq ues were employed. CTDIvol: 16.3 mGy. DLP: 627 mGy-cm.. LIMITATIONS: No technical limitations. FINDINGS: LUNGS AND PLEURA: The trachea and main bronchi are patent. The calcified 5 mm nodule in t he right lower lobe (image 89 of series 4) is unchanged. The subpleural sub solid 4 mm nodule in the right upper lobe (image 32 of series 4) is unchanged from the 12/04/2017 CT. There is no acute cons olidation, pleural effusion, ground-glass opacification or pneumothorax. HILAR AND MEDIASTINAL STRUCTURES: Evaluation of the keli for adenopathy is limited due to the absence of intravenous contrast. There is no mediastinal adenopathy or mass. HEART AND VASCULAR STRUCTURES: Mild to moderate atherosclerotic calcification of the coronary arterie s. There is no cardiomegaly or pericardial effusion. UPPER ABDOMEN: The low attenuation of hepatic parenchyma is suggestive of hepatic steatosis. There i s a 3 mm calculus within a left upper pole calyx. THYROID AND OTHER SOFT TISSUES: The thyroid lobe is enlarged and heterogeneous in a portion of the ri ght lobe extends below the thoracic inlet and into the anterior mediastinum. BONES: No acute findings. HARDWARE: None in the chest. OTHER: No other findings. IMPRESSION: 1. Stable calcified 5 mm nodule in the right lower lobe (image 89 of series 4) and subpl eural sub solid 4 mm in the right upper lobe (image 32 of series 4). 2. Multinodular goiter. 3. 3 mm left upper pole caliceal calculus. TECHNICAL DOCUMENTATION: JOB ID: [id number] Quality ID # [id number]: Final reports with documentation of one or more dose reduction techniques (e.g., Au tomated exposure control, adjustment of the mA and/or kV according to patient size, use of iterative reconstruction technique) 2010 [employer]- All Rights Reserved Reading location - IP/workstation name: [email or web address] CENTERLowell
== END ==
LOC: RAD 10:57
PROVIDERS: ATTEND Internal Medicine Critical Care Medicine
DX: R91.1 Solitary pulmonary nodule (principal); E04.2 Nontoxic multinodular goiter
CPT/HCPCS: 71250

== ENCOUNTER → 2019-08-18 | Outpatient (CLI) | payer MEDICARE, MEDICAID ==
--- NOTE | 2019-08-18 11:31 | RADIOLOGY REPORT (SQ) ---
EXAM DESCRIPTION: CT CHEST WITH IMAGES COMPLETED DATE/TIME: 08/18/2019 10:31 am REASON FOR STUDY: D39.12 NEOPLASM OF UNCERTAIN BEHAVIOR OF LEFT OVARY D39.12 NEOPLASM OF UNCERTAIN BEHAVIOR OF LEFT OVARY COMPARISON: 03/07/2019 TECHNIQUE: CT scan of the chest performed using helical scanning technique with dynamic intravenous contrast injection. Images reviewed with lung, soft tissue and bone windows. Reconstructed coronal and sagittal MPR and MIP images reviewed. All images stored on PACS. All CT scanners at this facility use dose modulation, iterative reconstruction, and/or weight based d osing when appropriate to reduce radiation dose to as low as reasonably achievable (ALARA). [facility]: Dose Right [facility]: CareDose [facility]: Dose Right [facility]: Teradose 4D [facility]: Proto[employer] CONTRAST TYPE AND DOSE: 100 cc Omnipaque 350- low osmolar. RENAL FUNCTION: Creatinine 0.9 RADIATION DOSE: . LIMITATIONS: None. FINDINGS: LUNGS AND PLEURA: 5 mm calcified granuloma in the right base on image 83. 4 mm subpleural nodule in the right upper lobe is seen on the prior study is unchanged. See image 27 series 6. No infiltrate, effusion, or significant mass. HILAR AND MEDIASTINAL STRUCTURES: No identified masses or abnormal nodes. HEART AND VASCULAR STRUCTURES: No aneurysm or dissection. No central pulmonary emboli. No pericardi al effusion. HARDWARE: None in the chest. UPPER ABDOMEN: No significant findings. Limited exam. THYROID AND OTHER SOFT TISSUES: No masses. No adenopathy. BONES: No significant finding. OTHER: No other significant finding. IMPRESSION: There is no evidence of metastatic disease in the thorax. TECHNICAL DOCUMENTATION: JOB ID: [id number] Quality ID # [id number]: Final reports with documentation of one or more dose reduction techniques (e.g., Au tomated exposure control, adjustment of the mA and/or kV according to patient size, use of iterative reconstruction technique) 2010 [employer]- All Rights Reserved Reading location - IP/workstation name: [email or web address]
--- NOTE | 2019-08-18 11:39 | RADIOLOGY REPORT (SQ) ---
EXAM DESCRIPTION: CT ABD/PELVIS WITH IV ORAL IMAGES COMPLETED DATE/TIME: 08/18/2019 10:31 am REASON FOR STUDY: D39.12 NEOPLASM OF UNCERTAIN BEHAVIOR OF LEFT OVARY D39.12 NEOPLASM OF UNCERTAIN BEHAVIOR OF LEFT OVARY COMPARISON: 11/19/2017 TECHNIQUE: CT scan of the abdomen and pelvis performed using helical scanning technique with dynamic intravenous contrast injection. Oral contrast. Images reviewed with lung, soft tissue, and bone win dows. Reconstructed coronal and sagittal MPR images reviewed. Delayed images for evaluation of the ur inary system also acquired. All images stored on PACS. All CT scanners at this facility use dose modulation, iterative reconstruction, and/or weight based d osing when appropriate to reduce radiation dose to as low as reasonably achievable (ALARA). [facility]: Dose Right [facility]: CareDose [facility]: Dose Right [facility]: Teradose 4D [facility]: Influx[employer] CONTRAST TYPE AND DOSE: contrast/concentration: Isovue 350.00 mmol/ml; Total Contrast Delivered: 99. 8 ml; Total Saline Delivered: 69.0 ml RENAL FUNCTION: Creatinine 0.9 RADIATION DOSE: CT Rad equipment meets quality standard of care and radiation dose reduction techniq ues were employed. CTDIvol: 14.1 - 23.3 mGy. DLP: 3043 mGy-cm.. LIMITATIONS: None. FINDINGS: LOWER CHEST: See separate report of the CT of the chest. LIVER: Normal size. No masses. No dilated ducts. SPLEEN: Normal size. No focal lesions. PANCREAS: No masses. No significant calcifications. No adjacent inflammation or peripancreatic fluid collections. Pancreatic duct not dilated. GALLBLADDER: No identified stones by CT criteria. No inflammatory changes to suggest cholecystitis. ADRENAL GLANDS: No significant masses or asymmetry. RIGHT KIDNEY AND URETER: No solid masses. No significant calcifications. No hydronephrosis or hyd roureter. LEFT KIDNEY AND URETER: No solid masses. There is a tiny nonobstructing upper calyceal calculus. No hydronephrosis or hydroureter. AORTA AND VESSELS: No aneurysm. No dissection. Renal arteries, SMA, celiac without stenosis. RETROPERITONEUM: No retroperitoneal adenopathy, hemorrhage or masses. BOWEL AND PERITONEAL CAVITY: No masses or inflammatory changes. No free fluid or peritoneal masses. APPENDIX: Not identified. PELVIS: No mass. No free fluid. Normal bladder. ABDOMINAL WALL: No masses. No hernias. BONES: No significant or acute findings. OTHER: No other significant finding. IMPRESSION: There is a tiny nonobstructing intrarenal calculus in the left kidney. There is no evid ence of metastatic disease in the abdomen or pelvis. No acute finding. TECHNICAL DOCUMENTATION: JOB ID: [id number] Quality ID # [id number]: Final reports with documentation of one or more dose reduction techniques (e.g., Au tomated exposure control, adjustment of the mA and/or kV according to patient size, use of iterative reconstruction technique) 2010 [employer]- All Rights Reserved Reading location - IP/workstation name: [email or web address]
== END ==
LOC: RAD 09:49
PROVIDERS: ATTEND Student in an Organized Health Care Education/Training Program
DX: R10.9 Unspecified abdominal pain (principal); N20.0 Calculus of kidney; D39.10 Neoplasm of uncertain behavior of unspecified ovary
CPT/HCPCS: 71260; 74177; 82565

== ENCOUNTER → 2019-11-10 | Outpatient (CLI) | payer MEDICARE, MEDICAID ==
[2019-11-10 15:09] LABS: ABSOLUTE BASOPHILS # (AUTO) 0.1 10^3/uL (0.0-0.2); ABSOLUTE EOSINOPHILS # (AUTO) 0.2 10^3/uL (0.0-0.6); ABSOLUTE LYMPHOCYTES (AUTO) 1.4 10^3/uL (0.5-4.7); ABSOLUTE MONOCYTES (AUTO) 0.9 10^3/uL (0.1-1.4); ABSOLUTE NEUT (AUTO) 2.5 10^3/uL (1.7-8.2); HEMATOCRIT 41.8 % (36.0-47.0); HEMOGLOBIN 14.1 g/dL (12.0-15.5); LYMPHOCYTES % (AUTO) 27.3 % (13-45); MEAN CORPUSCULAR HEMOGLOBIN 29.7 pg (27.0-33.4); MEAN CORPUSCULAR HGB CONC 33.7 g/dL (32.0-36.0); MEAN CORPUSCULAR VOLUME 88 fl (80-97); MONOCYTES % (AUTO) 17.6 % (3-13); PLATELET COUNT 180 10^3/uL (150-450); RED BLOOD COUNT 4.74 10^6/uL (3.72-5.28); RED CELL DISTRIBUTION WIDTH 15.3 % (11.5-14.0); SEGMENTED NEUTROPHILS % (AUTO) 50.1 % (42-78); TOTAL CELLS COUNTED % (AUTO) 100 %
[2019-11-10 15:17] LABS: INTERNATIONAL RATION (INR) 0.93; PROTHROMBIN TIME 12.7 SEC (11.4-15.4)
[2019-11-10 15:28] LABS: ALBUMIN 4.3 g/dL (3.5-5.0); ALKALINE PHOSPHATASE 104 U/L (38-126); ANION GAP 12 (5-19); ASPARTATE AMINO TRANSFERASE 102 U/L (14-36); BILIRUBIN,DIRECT 0.4 mg/dL (0.0-0.4); BILIRUBIN,TOTAL 0.5 mg/dL (0.2-1.3); BLOOD UREA NITROGEN 18 mg/dL (7-20); CALCIUM 9.9 mg/dL (8.4-10.2); CARBON DIOXIDE 30 mmol/L (22-30); CHLORIDE 97 mmol/L (98-107); GLUCOSE 121 mg/dL (75-110); POTASSIUM 4.1 mmol/L (3.6-5.0); TOTAL PROTEIN 7.7 g/dL (6.3-8.2)
== END ==
LOC: OD 14:11
PROVIDERS: ATTEND Internal Medicine Gastroenterology
DX: B18.2 Chronic viral hepatitis C (principal)
CPT/HCPCS: 36415; 80053; 81270; 85025; 85610; 86317; 86701; 87522

== ENCOUNTER → 2019-11-23 | Outpatient (CLI) | payer MEDICARE, MEDICAID | LOC: OD 12:36 | PROVIDERS: ATTEND Internal Medicine Gastroenterology | DX: B18.2 Chronic viral hepatitis C (principal); Z53.8 Procedure and treatment not carried out for other reasons ==

== ENCOUNTER → 2020-01-16 | Outpatient (CLI) | payer MEDICARE, MEDICAID ==
[2020-01-16 13:13] LABS: ABSOLUTE BASOPHILS # (AUTO) 0.1 10^3/uL (0.0-0.2); ABSOLUTE EOSINOPHILS # (AUTO) 0.5 10^3/uL (0.0-0.6); ABSOLUTE LYMPHOCYTES (AUTO) 2.1 10^3/uL (0.5-4.7); ABSOLUTE MONOCYTES (AUTO) 1.1 10^3/uL (0.1-1.4); ABSOLUTE NEUT (AUTO) 4.6 10^3/uL (1.7-8.2); BASOPHILS % (AUTO) 1.4 % (0-2); EOSINOPHILS % (AUTO) 5.4 % (0-6); HEMATOCRIT 40.3 % (36.0-47.0); HEMOGLOBIN 13.4 g/dL (12.0-15.5); LYMPHOCYTES % (AUTO) 25.5 % (13-45); MEAN CORPUSCULAR HEMOGLOBIN 29.4 pg (27.0-33.4); MEAN CORPUSCULAR HGB CONC 33.2 g/dL (32.0-36.0); MEAN CORPUSCULAR VOLUME 88 fl (80-97); MONOCYTES % (AUTO) 12.8 % (3-13); PLATELET COUNT 249 10^3/uL (150-450); RED BLOOD COUNT 4.56 10^6/uL (3.72-5.28); RED CELL DISTRIBUTION WIDTH 15.9 % (11.5-14.0); SEGMENTED NEUTROPHILS % (AUTO) 54.9 % (42-78); TOTAL CELLS COUNTED % (AUTO) 100 %; WHITE BLOOD COUNT 8.4 10^3/uL (4.0-10.5)
[2020-01-16 13:34] LABS: ALBUMIN 4.2 g/dL (3.5-5.0); ALKALINE PHOSPHATASE 79 U/L (38-126); ANION GAP 10 (5-19); ASPARTATE AMINO TRANSFERASE 28 U/L (14-36); BILIRUBIN,DIRECT 0.1 mg/dL (0.0-0.4); BILIRUBIN,TOTAL 0.4 mg/dL (0.2-1.3); BLOOD UREA NITROGEN 19 mg/dL (7-20); CALCIUM 9.7 mg/dL (8.4-10.2); CARBON DIOXIDE 28 mmol/L (22-30); CHLORIDE 103 mmol/L (98-107); GLUCOSE 73 mg/dL (75-110); TOTAL PROTEIN 7.4 g/dL (6.3-8.2)
== END ==
LOC: OD 12:20
PROVIDERS: ATTEND Internal Medicine Gastroenterology
DX: B18.2 Chronic viral hepatitis C (principal)
CPT/HCPCS: 36415; 80053; 85025; 87522

== ENCOUNTER → 2020-03-15 | Outpatient (CLI) | payer MEDICARE, MEDICAID | LOC: OD 11:32 | PROVIDERS: ATTEND Internal Medicine Gastroenterology | DX: B18.2 Chronic viral hepatitis C (principal) | CPT/HCPCS: 36415; 87522 ==